=== PATIENT | female | born 2000 | race Caucasian/White ===

== ENCOUNTER 2018-10-07 14:56 | Emergency (ER) | payer MEDICAID, SELFPAY ==
[2018-10-07 14:58] VITALS: BP 105/60; PULSE 74; RESP 16; TEMP 36.9; O2SAT 98
--- NOTE | 2018-10-07 15:06 | W.ED.GENAD ---
Discharge Plan Disposition Patient Disposition: HOME Condition: Stable Discharge Details Chief Complaint: Sorethroat Clinical Impression: Sore throat Primary Care Provider: Marianne Jordan ED Provider: Jose Luis Ferreira Home Meds and New Rx's Prescriptions: No Action sertraline 25 MG tablet 25 mg PO DAILY RF: 0 sulfamethoxazole-trimethoprim [Bactrim DS] 1 EACH tablet 1 ea PO BID Qty: 14 RF: 0 etonogestrel [Nexplanon] 68 MG implant 1 ea Intradermal DIRECTED RF: 0 Discharge Instructions Additional Instructions: You can take 1000mg tylenol and 600mg ibuprofen every 6 hours for pain as needed If symptoms continue next week see your primary care provider if you have severe worsening pain, inability to swallow liquids or difficulty breathing return to the emergency department Medical Decision Making 17 yo female who denies chronic med problems comes in with 3 days of sore throat and felt there were white patches on her posterior pharynx today so came here for an eval. Denies fevers, cough. She is speaking in full sentences without dyspnea, stridor or drooling and is laughing intermittently on exam. 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 Suspect viral pharyngitis vs mild irritation from post nasal drip but will check for strep and if positive tx. Will d/c regardless with return precautions Differential Diagnosis viral pharyngitis, post nasal drip, strep HPI General Mode of arrival: ambulatory. Date/Time Provider Initiated Documentation: 10/07/18 14:58. Limitations to Documentation: no limitations. Information obtained by: patient. History of Present Illness 17 year old F presents to the emergency department with the chief complaint of sore throat, described as moderate, Quality is described as aching, Patient reports no radiation. Patient started experiencing this day(s) (3) and it has been constant. No exacerbating factors reported . Patient notes no other symptoms.. Related Data Home Medications Medication Instructions Recorded Confirmed etonogestrel [Nexplanon] 1 ea INTRADERMAL DIRECTED 05/26/16 11/07/17 sertraline 25 mg PO DAILY 10/09/17 11/07/17 sulfamethoxazole-trimethoprim 1 ea PO BID #14 tablet 11/07/17 [Bactrim Ds Tablet] Previous Rx's Medication Instructions Recorded sulfamethoxazole-trimethoprim 1 ea PO BID #14 tablet 11/07/17 [Bactrim Ds Tablet] Allergies Allergy/AdvReac Type Severity Reaction Status Date / Time hair dye Allergy Intermediate Swelling/Ed Uncoded 11/07/17 12:19 aniceto General Stated Complaint: Sorethroat CONRADO: 4 Review of Systems Review of Systems All systems reviewed & are unremarkable except as noted in HPI and below Constitutional Denies chills and Denies fever(s) ENT Denies change in voice Cardiovascular Denies chest pain and Denies dyspnea Respiratory Denies cough and Denies dyspnea Gastrointestinal Denies vomiting Integumentary/Breasts Denies rash PFSH Social History Smoking/Tobacco Use Status: Current every day Tobacco Type: cigarettes Smoking cigarettes per day: 2 Drug use: Never Substance use type: marijuana Do you feel safe in your relationship?: Yes Exam Const General: no acute distress Orientation: alert HENMT Head: normal to inspection Ears: external ears normal General nose exam: external nose normal Mouth: moist mucous membranes Eyes General: appearance normal, both eyes and all related structures Neck Neck: normal visual inspection Resp Effort & Inspection: normal respiratory effort and able to speak in complete sentences Cardio Rate: regular rate Skin General skin exam: no rashes or lesions noted Neuro General: alert and oriented x3 Extrem General: normal to inspection Psych Mental Status: mental status grossly normal Course Vital Signs Temperature 36.9 C 10/07/18 14:58 Pulse 74 10/07/18 14:58 Respiratory Rate 16 10/07/18 14:58 Blood Pressure 105/60 10/07/18 14:58 Pulse Oximetry 98 10/07/18 14:58 Temperature 36.9 C 10/07/18 14:58 Temperature Source Skin 10/07/18 14:58 Pulse 74 10/07/18 14:58 Respiratory Rate 16 10/07/18 14:58 Respiratory Effort Non-Labored 10/07/18 15:03 Blood Pressure 105/60 10/07/18 14:58 Blood Pressure Position Sitting 10/07/18 14:58 Pulse Oximetry 98 10/07/18 14:58 Oxygen Delivery Method Room Air 10/07/18 14:58 Oxygen Flow Rate 0 10/07/18 14:58 Pain Level 6 10/07/18 14:58
--- NOTE | 2018-10-07 15:10 | ED.GENADUL_ITS ---
Discharge Plan Disposition Patient Disposition: HOME Condition: Stable Discharge Details Chief Complaint: Sorethroat Clinical Impression: Sore throat Primary Care Provider: Marianne Jordan ED Provider: Jose Luis Ferreira Home Meds and New Rx's Prescriptions: No Action sertraline 25 MG tablet 25 mg PO DAILY RF: 0 sulfamethoxazole-trimethoprim [Bactrim DS] 1 EACH tablet 1 ea PO BID Qty: 14 RF: 0 etonogestrel [Nexplanon] 68 MG implant 1 ea Intradermal DIRECTED RF: 0 Discharge Instructions Additional Instructions: You can take 1000mg tylenol and 600mg ibuprofen every 6 hours for pain as needed If symptoms continue next week see your primary care provider if you have severe worsening pain, inability to swallow liquids or difficulty breathing return to the emergency department Medical Decision Making 17 yo female who denies chronic med problems comes in with 3 days of sore throat and felt there were white patches on her posterior pharynx today so came here for an eval. Denies fevers, cough. She is speaking in full sentences without dyspnea, stridor or drooling and is laughing intermittently on exam. 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 Suspect viral pharyngitis vs mild irritation from post nasal drip but will check for strep and if positive tx. Will d/c regardless with return precautions Differential Diagnosis viral pharyngitis, post nasal drip, strep HPI General Mode of arrival: ambulatory . Date/Time Provider Initiated Documentation: 10/07/18 14:58 . Limitations to Documentation: no limitations . Information obtained by: patient . History of Present Illness 17 year old F presents to the emergency department with the chief complaint of sore throat, described as moderate, Quality is described as aching, Patient reports no radiation. Patient started experiencing this day(s) (3) and it has been constant. No exacerbating factors reported . Patient notes no other symptoms.. Related Data Home Medications Medication Instructions Recorded Confirmed etonogestrel [Nexplanon] 1 ea INTRADERMAL DIRECTED 05/26/16 11/07/17 sertraline 25 mg PO DAILY 10/09/17 11/07/17 sulfamethoxazole-trimethoprim 1 ea PO BID #14 tablet 11/07/17 [Bactrim Ds Tablet] Previous Rx's Medication Instructions Recorded sulfamethoxazole-trimethoprim 1 ea PO BID #14 tablet 11/07/17 [Bactrim Ds Tablet] Allergies Allergy/AdvReac Type Severity Reaction Status Date / Time hair dye Allergy Intermediate Swelling/Ed Uncoded 11/07/17 12:19 aniceto General Stated Complaint: Sorethroat CONRADO: 4 Review of Systems Review of Systems All systems reviewed & are unremarkable except as noted in HPI and below Constitutional Denies chills and Denies fever(s) ENT Denies change in voice Cardiovascular Denies chest pain and Denies dyspnea Respiratory Denies cough and Denies dyspnea Gastrointestinal Denies vomiting Integumentary/Breasts Denies rash PFSH Social History Smoking/Tobacco Use Status: Current every day Tobacco Type: cigarettes Smoking cigarettes per day: 2 Drug use: Never Substance use type: marijuana Do you feel safe in your relationship?: Yes Exam Const General: no acute distress Orientation: alert HENMT Head: normal to inspection Ears: external ears normal General nose exam: external nose normal Mouth: moist mucous membranes Eyes General: appearance normal, both eyes and all related structures Neck Neck: normal visual inspection Resp Effort & Inspection: normal respiratory effort and able to speak in complete sentences Cardio Rate: regular rate Skin General skin exam: no rashes or lesions noted Neuro General: alert and oriented x3 Extrem General: normal to inspection Psych Mental Status: mental status grossly normal Course Vital Signs Temperature 36.9 C 10/07/18 14:58 Pulse 74 10/07/18 14:58 Respiratory Rate 16 10/07/18 14:58 Blood Pressure 105/60 10/07/18 14:58 Pulse Oximetry 98 10/07/18 14:58 Temperature 36.9 C 10/07/18 14:58 Temperature Source Skin 10/07/18 14:58 Pulse 74 10/07/18 14:58 Respiratory Rate 16 10/07/18 14:58 Respiratory Effort Non-Labored 10/07/18 15:03 Blood Pressure 105/60 10/07/18 14:58 Blood Pressure Position Sitting 10/07/18 14:58 Pulse Oximetry 98 10/07/18 14:58 Oxygen Delivery Method Room Air 10/07/18 14:58 Oxygen Flow Rate 0 10/07/18 14:58 Pain Level 6 10/07/18 14:58
[2018-10-07 15:33] VITALS: BP 105/60; PULSE 74; RESP 16; TEMP 36.9; O2SAT 98
== END 2018-10-07 15:39 | disposition home or self-care (01) ==
LOC: ER 15:17
PROVIDERS: Emergency Provider Emergency Medicine; PCP Nurse Practitioner
DX: J02.9 Acute pharyngitis, unspecified (principal); F17.210 Nicotine dependence, cigarettes, uncomplicated
CPT/HCPCS: 87880; 99282; 87081

== ENCOUNTER 2020-04-30 17:22 | Outpatient (REF) | payer OTHER, SELFPAY ==
--- NOTE | 2020-04-30 16:30 | PAPFT_PTH ---
PATIENT: Nadia Morrison LOC: NCN #:[id number] AGE/SX: / ROOM: RE04/30/[address]: Meg Garcia : 2000 BED: DIS: 04/30/2020 SPEC #: [id number] RECD: 04/30/20 17:42 STATUS: NAPOLEON REYaneli #: [id number] LEÓN: 04/30/20 16:[address]: Meg Garcia DEPT: [facility] RECD BY: Georgette Wu ENTERED: 04/30/20 17:43 SP TYPE: PAPFT OTHR DR: Marianne Jordan Tissues: 1 - CX/ENDOCX FOR PAP SMEARS Procedures: PAP THIN PREP/UVM Screening Comments: [id number]
== END 2020-04-30 17:42 ==
LOC: NCHCN 17:22
PROVIDERS: PCP Nurse Practitioner; Visit Provider Nurse Practitioner Family
DX: Z00.00 Encounter for general adult medical examination without abnormal findings (principal); N89.8 Other specified noninflammatory disorders of vagina; F41.9 Anxiety disorder, unspecified; Z12.4 Encounter for screening for malignant neoplasm of cervix
CPT/HCPCS: 88142; 87480; 87510; 87660

== ENCOUNTER 2020-06-16 13:29 | Emergency (ER) | payer OTHER, SELFPAY ==
[2020-06-16 13:34] VITALS: BP 118/69; PULSE 104; RESP 16; TEMP 36.6; O2SAT 98
[2020-06-16 13:55] LABS: Bilirubin Negative (Negative); Blood Large (Negative); Clarity Cloudy (Clear); Glucose Negative (Negative); Ketones Trace mg/dL (Negative); Leukocyte Esterase Trace (Negative); Nitrite Negative (Negative); Specific Gravity >= 1.030 (1.005-1.025); Urobilinogen 0.2 EU/dL (Up TO 0.2)
[2020-06-16 14:03] LABS: Bacteria Moderate HPF (Negative); C & S Indicated? Yes; Casts Negative LPF (Negative); Crystals Negative HPF (Negative); Epithelial Cells Few HPF (Negative); Mucus Moderate (Negative); RBC >50 HPF (0-2)
--- NOTE | 2020-06-16 14:29 | ED.GENADUL_ITS ---
Discharge Plan Disposition Patient Disposition: HOME Condition: Stable Discharge Details Clinical Impression: UTI (urinary tract infection) Primary Care Provider: Meg Garcia ED Provider: Usama Hernandez Home Meds and New Rx's Prescriptions: New nitrofurantoin monohyd/m-cryst [Macrobid] 100 mg capsule 100 mg PO BID 7 Days Qty: 14 RF: 0 Discharge Instructions Instructions: Urinary Tract Infection in Women (ED) Additional Instructions: Macrobid as directed. [id number] Azo for symptomatic control. Plenty of fluids. Please watch for new or worsening symptoms and return to the ER for any concerns. I do recommend reaching out your primary care provider tomorrow to discuss outpatient reevaluation. Discharge Data Discharge Date/Time-TO BE ENTERED AT DEPARTURE: 06/16/20 14:37 Medical Decision Making 19-year-old female presenting for concern of UTI. She appears well, nontoxic. Dysuria and frequency began over the past 12-24 hours. Will obtain urinalysis and test. Urinalysis reveals moderate bacteria, 10-20 white cells, greater than 50 red cells, trace leukoesterase, large blood. Urine negative. In the setting of her urinalysis, symptoms, I will initiate therapy for UTI with Macrobid, first dose given now. Patient comfortable this plan and has no a dditional questions or concerns. Medical Records Medical records reviewed: Yes I reviewed the patient's medical records. Lab Data Lab results reviewed: Yes I reviewed the patient's lab results. Lab results narrative: 06/16/20 13:50 Urine - Reflex from Ua Urine Culture - Final Staphylococcus Saprophyticus Laboratory Tests Range/Units 06/16/20 13:50 Urine Color (Yellow) Yellow Urine Clarity (Clear) Cloudy Urine pH (5-8) 7.0 Ur Specific [place] (1.005-1.025) >= 1.030 H Urine Protein (Negative) mg/dL >=300 H Urine Ketones (Negative) mg/dL Trace H Urine Blood (Negative) Large H Urine Nitrite (Negative) Negative Urine Bilirubin (Negative) Negative Urine Urobilinogen (Up TO 0.2) EU/dL 0.2 Ur Leukocyte Esterase (Negative) Trace H Urine RBC (0-2) HPF >50 H Urine WBC (0-5) HPF 10-20 H Ur Epithelial Cells (Negative) HPF Few Urine Crystals (Negative) HPF Negative Urine Bacteria (Negative) HPF Moderate Urine Casts (Negative) LPF Negative Urine Mucus (Negative) Moderate Ur Culture Indicated? Yes Urine Glucose (Negative) mg/dL Negative HPI General Mode of arrival: ambulatory . Date/Time Provider Initiated Documentation: 06/16/20 13:30 . Limitations to Documentation: no limitations . Information obtained by: patient . HPI Narrative: This is a 19-year-old female, denies significant past medical history, presented to the ER for urinary frequency and pressure. She reports she believes she has UTI and this is what this feels like in the past. Symptoms began over the past 12-24 hours. She denies fevers, abdominal pain, nausea, vomiting, back pain, hematuria, vaginal bleeding or discharge. She reports that her last menstrual cycle was a few weeks ago. She was seen by [facility] RO[facility] ATTENDANT within the last month and had a normal pelvic examination. She denies any STD risk. Patient reports history of herpes but no outbreak now. Related Data Home Medications Medication Instructions Recorded Confirmed nitrofurantoin monohyd/m-cryst 100 mg PO BID 7 Days #14 cap 06/16/20 [Macrobid] Previous Rx's Medication Instructions Recorded nitrofurantoin monohyd/m-cryst 100 mg PO BID 7 Days #14 cap 06/16/20 [Macrobid] Allergies Allergy/AdvReac Type Severity Reaction Status Date / Time hair dye Allergy Intermediate Swelling/Ed Uncoded 06/16/20 13:52 aniceto General Stated Complaint: Urinary CONRADO: 4 Review of Systems Constitutional Constitutional: Denies fever(s) Gastrointestinal Gastrointestinal: Denies abdominal pain, Denies nausea and Denies vomiting Genitourinary Genitourinary: Denies abnormal vaginal bleeding, Denies genital lesions, Reports dysuria, Denies urinary incontinence, Reports urinary urgency and Denies vaginal discharge Musculoskeletal Musculoskeletal: Denies back pain Integumentary/Breasts Skin/Breast: Denies lesions and Denies erythema [facility] Social History Smoking/Tobacco Use Status: Current every day Tobacco Type: cigarettes Smoking risk assessment performed?: Yes Drug use: Never Substance use type: marijuana Do you feel safe in your relationship?: Yes Exam Const General: cooperative, healthy appearing, comfortable and no acute distress Orientation: alert and awake [facility] Head: normal to inspection, normocephalic and atraumatic Eyes General: appearance normal, both eyes and all related structures Conjunctivae: conjunctivae normal Sclera: sclerae normal Neck Neck: normal visual inspection, trachea midline and supple Resp Effort & Inspection: normal respiratory effort and able to speak in complete sentences Auscultation: clear to auscultation bilaterally Cardio Rate: regular rate Rhythm: regular rhythm GI Inspection: normal to inspection Palpation: soft, not firm, no guarding, no pulsatile masses and nontender Auscultation: normal bowel sounds Back/Spine/Pelvis Back: no CVA tenderness and No back tenderness Skin General skin exam: no rashes or lesions noted Neuro General: patient alert, patient awake, moves all extremities and no focal motor deficits Sensory Exam: no sensory deficits noted Psych Appearance: grossly normal Mental Status: mental status grossly normal Course Vital Signs Vital signs: Vital Signs Temperature 36.6 C 06/16/20 13:34 Pulse 104 H 06/16/20 13:34 Respiratory Rate 16 06/16/20 13:34 Blood Pressure 118/69 06/16/20 13:34 Pulse Oximetry 98 06/16/20 13:34 Temperature 36.6 C 06/16/20 13:34 Temperature Source Temporal Artery Scan 06/16/20 13:34 Pulse 104 H 06/16/20 13:34 Respiratory Rate 16 06/16/20 13:34 Respiratory Effort 06/16/20 13:53 Blood Pressure 118/69 06/16/20 13:34 Blood Pressure Position Sitting 06/16/20 13:34 Pulse Oximetry 98 06/16/20 13:34 Oxygen Delivery Method Room Air 06/16/20 13:34 Oxygen Flow Rate 0 06/16/20 13:34 Lab/Test Results Lab/Test Results: 06/16/20 13:50 Urine - Reflex from Ua Urine Culture - Pending Laboratory Tests Range/Units 06/16/20 13:50 Urine Color (Yellow) Yellow Urine Clarity (Clear) Cloudy Urine pH (5-8) 7.0 Ur Specific [place] (1.005-1.025) >= 1.030 H Urine Protein (Negative) mg/dL >=300 H Urine Ketones (Negative) mg/dL Trace H Urine Blood (Negative) Large H Urine Nitrite (Negative) Negative Urine Bilirubin (Negative) Negative Urine Urobilinogen (Up TO 0.2) EU/dL 0.2 Ur Leukocyte Esterase (Negative) Trace H Urine RBC (0-2) HPF >50 H Urine WBC (0-5) HPF 10-20 H Ur Epithelial Cells (Negative) HPF Few Urine Crystals (Negative) HPF Negative Urine Bacteria (Negative) HPF Moderate Urine Casts (Negative) LPF Negative Urine Mucus (Negative) Moderate Ur Culture Indicated? Yes Urine Glucose (Negative) mg/dL Negative POC- Test(urine) Negative
[2020-06-16] MEDS: MacroBID 100 MG CAP PO (14:30)
== END 2020-06-16 14:37 | disposition home or self-care (01) ==
PROVIDERS: Emergency Provider Physician Assistant; PCP Nurse Practitioner Family
DX: N39.0 Urinary tract infection, site not specified (principal); B95.7 Other staphylococcus as the cause of diseases classified elsewhere; Z87.440 Personal history of urinary (tract) infections
CPT/HCPCS: 81025; 87077; 99283; 81003; 81015; 87086; 87186

== ENCOUNTER 2020-08-07 10:27 | Outpatient (CLI) | payer OTHER, SELFPAY ==
[2020-08-07 11:24] LABS: HCG Quant, Pregnancy 28292 mIU/mL (1-3)
== END 2020-08-07 10:28 | disposition home or self-care (01) ==
PROVIDERS: PCP Nurse Practitioner Family; Visit Provider Advanced Practice Midwife
DX: Z32.01 Encounter for pregnancy test, result positive (principal)
CPT/HCPCS: 36415; 84702

== ENCOUNTER 2020-09-10 18:22 | Outpatient (REF) | payer OTHER, SELFPAY ==
[2020-09-10 18:37] LABS: *AMPHETAMINES SCREEN URINE Negative (Negative); *BARBITURATES SCREEN URINE Negative (Negative); *BENZODIAZEPINES SCREEN URINE Negative (Negative); Cannabinoids THC Positive (Negative); Cocaine Screen,Urine Negative (Negative); METHADONE URINE SCREEN Negative (Negative); OPIATES URINE SCREEN Negative (Negative)
[2020-09-10 18:41] LABS: Tricyclic Antidepressants Negative (Negative)
[2020-09-18 16:26] LABS: Buprenorphine Negative ng/mL (Cutoff: 5.0); Norbuprenorphine Negative ng/mL (Cutoff: 2.5)
== END 2020-09-10 18:23 | disposition home or self-care (01) ==
LOC: LBN 18:22
PROVIDERS: PCP Nurse Practitioner Family; Visit Provider Advanced Practice Midwife
DX: O02.1 Missed abortion (principal); Z01.818 Encounter for other preprocedural examination
CPT/HCPCS: 80307

== ENCOUNTER 2020-09-11 08:27 | Day surgery (SDC) | payer OTHER, SELFPAY ==
[2020-09-11 08:56] VITALS: BP 115/71; PULSE 79; RESP 16; TEMP 37; O2SAT 100
--- NOTE | 2020-09-11 09:18 | W.ANESPRE ---
General Info Date of Service Date Performed: 09/11/20 Height: 5 ft 6 in Weight: 57 kg Body Mass Index (BMI): 20.2 Surgical Procedure: Operation Date: 09/11/20 09:25 Proposed Procedures Side Surgeon p Suction Completion Darling Montez MD Meds Allergies and Home Medications Allergies Allergy/AdvReac Type Severity Reaction Status Date / Time hair dye Allergy Intermediate Swelling/Ed Uncoded 09/11/20 08:54 aniceto Home Medication Medication Instructions Recorded ondansetron 4 mg disintegrating 4 mg PO Q8H PRN 30 Days #90 tab 08/07/20 tablet PFSH Active Problems Active Problems: Problem Status Onset Code Hx of dilation and curettage Z98.890 Encounter for screening for other viral diseases Z11.59 UTI (urinary tract infection) N39.0 Missed menses ~06/2020 N92.6 confirmed by positive urine test Z32.01 Nausea and vomiting during prior to 22 weeks gestation O21.9 History of marijuana use Z87.898 History of prior cigarette smoking Z87.891 demise before 20 weeks with retention of fetus O02.1 Medical History Medical History (Updated 09/11/20 @ 08:58 by Darling Montez MD) No pertinent past medical history Surgical History Surgical History (Updated 09/11/20 @ 08:58 by Darling Montez MD) Hx of dilation and curettage Hx of wisdom tooth extraction Tobacco Smoking/Tobacco Use Status: Former Tobacco Use Tobacco: How many years used: 3 Alcohol Alcohol Intake: never Substance Use Substance use: Occasionally Substance use type: marijuana Details: 09/11/20 pt reports none today Prental History History 1 Para 0 Hx # Term Pregnancies 0 Multiple births 0 Hx # Pregnancies 0 Ectopic pregnancies 0 AB induced 0 Hx Number of Living Children 0 AB spontaneous 0 Vital Signs and Lab Results Vital Signs Most Recent Vital Signs in EMR: Most Recent Vital Signs Temp Pulse Resp BP Pulse Ox 37 C 79 16 115/71 100 09/11/20 08:56 09/11/20 08:56 09/11/20 08:56 09/11/20 08:56 09/11/20 08:56 Lab Results Result Diagrams: 09/11/20 09:15 09/11/20 09:15 Blood Type / Crossmatch: Patient ABO/Rh Pending 09/11/20 09:15 09/11/20 Complete Blood Count: White Blood Count 7.81 10^3/uL (4.4-10.8) 09/11/20 09:15 09/11/20 Red Blood Count 4.03 10^6/uL (3.93-5.22) 09/11/20 09:15 09/11/20 Hemoglobin 12.0 g/dL (11.2-15.7) 09/11/20 09:15 09/11/20 Hematocrit 36.0 % (36.0-46.0) 09/11/20 09:15 09/11/20 Platelet Count 279 10^3/uL (130-400) 09/11/20 09:15 09/11/20 Complete Metabolic Panel: Sodium Level 140 mmol/L (136-145) 09/11/20 09:15 09/11/20 Potassium Level 3.8 mmol/L (3.5-5.1) 09/11/20 09:15 09/11/20 Chloride Level 104 mmol/L (98-107) 09/11/20 09:15 09/11/20 Carbon Dioxide Level 26.1 mmol/L (21.0-32.0) 09/11/20 09:15 09/11/20 Liver Function Panel: No Data to Display Coagulation Panel: No Data to Display Cardiac Panel: No Data to Display Arterial Blood Gas: No Data to Display Venous Blood Gas: No Data to Display Pancreas Panel: No Data to Display Thyroid Panel: No Data to Display Infectious Disease: No Data to Display Blood Cultures: No Data to Display Toxicology Panel: Urine Amphetamines Screen Negative (Negative) 09/10/20 13:30 09/10/20 Urine Benzodiazepines Screen Negative (Negative) 09/10/20 13:30 09/10/20 Urine Barbiturates Screen Negative (Negative) 09/10/20 13:30 09/10/20 Urine Cocaine Screen Negative (Negative) 09/10/20 13:30 09/10/20 Urine Methadone Screen Negative (Negative) 09/10/20 13:30 09/10/20 Urine Opiates Screen Negative (Negative) 09/10/20 13:30 09/10/20 Ur Tricyclic Antidepressants Screen Negative (Negative) 09/10/20 13:30 09/10/20 Ur Tetrahydrocannabinol (THC) Scrn Positive (Negative) A 09/10/20 13:30 09/10/20 Panel: No Data to Display Anesthesia Assessment and Plan Anesthesia History Personal History: No History of Anesthesia Complications Family History: No Family History of Anesthesia Complications Exercise Tolerance Exercise Tolerance: Metabolic Equivalents>4 Pertinent Negatives Pertinent Negatives: No Symptoms of GERD, No Major Cardiovascular Symptoms or Complaints and No Major Pulmonary Symptoms or Complaints Cardiac & Pulmonary Exam Cardiac Exam: Normal S1/S2 Heart Sounds Pulmonary Exam: Clear Bilateral Breath Sounds Airway Exam Known Difficult Airway: No Mallampati Class: 1 Mouth Opening: Normal (> 3cm) Thyromental Distance: Greater than 3 cm Neck Range of Motion: Full ROM Neck Circumference: Normal Teeth Condition: Normal Dentition ASA Classification ASA Score: ASA 2 Emergency Case?: No NPO Status NPO Status: NPO Clears >2 hours, Solids >8 hours Status Status: Not Relevant due to Medical History Anesthesia Plan Resuscitation Status: Full Code Anesthesia Technique: General Anesthesia Airway Planned: Natural Airway Monitors Used: Standard Monitors
[2020-09-11 09:23] LABS: MCH 29.8 pg (27.0-33.0); MCHC 33.3 % (32.0-36.0); MCV 89.3 fL (80-95); MPV 9.9 fL (8.0-11.0); Platelet Count 279 10^3/uL (130-400); RBC 4.03 10^6/uL (3.93-5.22); RDW 12.5 % (11.7-14.6); RDW-SD 40.9 fL; WBC 7.81 10^3/uL (4.4-10.8)
[2020-09-11 09:27] LABS: Anion Gap 9.9 mmol/L (3-11); CO2 26.1 mmol/L (21.0-32.0); Chloride 104 mmol/L (98-107); Potassium 3.8 mmol/L (3.5-5.1); Sodium 140 mmol/L (136-145)
[2020-09-11] MEDS: Lactated Ringers 1,000 ML 125 ML IV (09:30)
[2020-09-11 09:36] VITALS: BMI 20.2
[2020-09-11] MEDS: DOXYCYCLINE 100 MG in Normal Saline 100 ML IVPB (09:59)
[2020-09-11] MEDS: Bupivacaine 0.25% Pres-Free 30 ML VIAL (10:07)
--- NOTE | 2020-09-11 10:17 | POCSPONT_PTH ---
PATIENT: Nadia Morrison LOC: [facility] U#:[id number] AGE/SX: 19/F ROOM: RE09/11/[address]: Darling Montez : 2000 BED: DIS: 09/11/2020 SPEC #: [id number] RECD: 09/11/20 12:41 STATUS: NAPOLEON MCLAUGHLIN #: [id number] LEÓN: 09/11/20 10:[address]: Darling Montez DEPT: Surgical Specimen RECD BY: Georgette Wu ENTERED: 09/11/20 12:42 SP TYPE: POCJOHANNE ANDRADE DR: Meg Garcia Tissues: 1 - ,SPONTANEOUS Procedures: GROSS AND MICRO LEVEL 4 IMMUNOPEROXIDASE STAIN Comments: [id number]
[2020-09-11 10:38] VITALS: BP 100/62; PULSE 74; RESP 16; TEMP 36.1; O2SAT 98
[2020-09-11 11:04] VITALS: BP 102/64; PULSE 61; RESP 16; TEMP 36.5; O2SAT 100
--- NOTE | 2020-09-11 11:10 | W.ANESPOSTOP ---
Postoperative Evaluation Date, Time and Location Date Performed: 09/11/20 Time Performed: 11:10 Patient Location: Day Surgery Unit Vital Signs Most Recent Imported Vital Signs: Most Recent Vital Signs Temp Pulse Resp BP Pulse Ox 36.5 C 61 16 102/64 100 09/11/20 11:04 09/11/20 11:04 09/11/20 11:04 09/11/20 11:04 09/11/20 11:04 Pain Score Most Recent Pain Score: Most Recent Pain Score Pain Level 0 09/11/20 11:04 Assessment Mental Status: Awake (Alert & Oriented to Patient Baseline) Airway and Respiratory Function: Patent airway with normal (patient baseline) respiratory exam Cardiovascular Function: Hemodynamically Stable Hydration Status: Adequately Hydrated Nausea & Vomiting: No Nausea or Vomiting Pain: Pt. Denies Any Pain Peripheral Nerve Block: Patient did not receive a nerve block
--- NOTE | 2020-09-11 11:14 | W.PM.DSUDISC ---
Discharge Plan Disposition Patient Disposition: HOME Condition: Good Discharge Details Reason For Visit: embryonic demise. D&C Attending Provider: Darling Montez Primary Care Provider: Meg Garcia Home Meds and New Rx's Prescriptions: No Action ondansetron 4 mg tablet,disintegrating 4 mg PO Q8H PRN (Reason: nausea and vomiting) 30 Days Qty: 90 RF: 2 Discharge Instructions Additional Instructions: follow up with Dr. Montez in [facility] any time after 09/22/20. Nothing in the vagina, no tampons, no sex until your visit with Dr. Montez You can expect light vaginal bleeding, like a period for the next week. Stand Alone Forms: DSU Post Suction D+C Activity:: Activity as Tolerated Diet:: As Tolerated Discharge Orders Discharge Orders: Discharge Order (Routine); Ordered 09/11/20 Ordered By: Darling Montez
--- NOTE | 2020-09-11 11:20 | ROE_ITS ---
Date of service: 09/11/20 Time of Service: 11:20 Operative Note Operative Note DATE OF PROCEDURE: 09/11/20 PRE-OP DIAGNOSIS: embryonic demise at 10w5d EGA POST-OP DIAGNOSIS: same PROCEDURE: cervical dilation and suction evacuation of uterine contents SURGEON: Darling Montez ANESTHESIA TYPE: General:No Airway Refer to Anesthesia Record ESTIMATED BLOOD LOSS: 50 PATHOLOGY: other (products of conception to pathology) COMPLICATIONS: None Patient was transported to: same day Patient's condition: stable Indications: 19yo female who was diagnosed with embryonic demise on 09/10/20 @ approximately 10w5d EGA. During initial OB H&P CNM was unable to auscultate heart tones using handheld doppler. TV u/s performed in the office showed non-viable IUP with CRL 1.73 cm c/w 8w0d EGA. Pt was counseled and accepted D&C. Findings: Uterus 8-9W in size. Mod amount of products of conception recovered. Procedure Description: Patient was taken to the operating room where she was placed in the dorsal supine position and general anesthesia was administered without difficulty. IV Doxycycline was administered upon arrival in the OR. She was then placed in the dorsal lithotomy position in [facility] stirrups in a neurologically neutral position. She was then prepped, and draped in the usual sterile fashion. Surgical timeout was performed. Tionesta speculum was placed into the vagina and the anterior lip of the cervix was infiltrated with 2 cc of 0.25% Marcaine without epinephrine. A single-tooth tenaculum was then used to grasp and hold the anterior lip of the cervix. A paracervical block was performed with 4 cc of quarter percent Marcaine injected into the 4 and 8:00 paracervical spaces respectively. The uterus was sounded to 10 cm. The cervix was then sequentially dilated to a maximum of 16 Braga and a 7 mm curved suction cannula was attached to suction and the level of suction tested prior to inserting the cannula into the uterine cavity attaching it to suction and sequentially suction curetting all 4 quadrants of the uterine cavity until a gritty texture was obtained. The suction cannula was then removed a banjo curette was used to perform a gentle curetting of all 4 quadrants of the uterine cavity. Minimal tissue was returned. A final insertion of the suction cannula and suction curetting of all 4 quadrants was performed with minimal tissue returned. All instruments were removed from the vagina tenaculum site was noted to be hemostatic. Patient was awakened and transported to recovery area in stable condition all sponge lap needle counts correct x2
== END 2020-09-11 11:58 | disposition home or self-care (01) ==
PROVIDERS: Advanced Practice Midwife; PCP Nurse Practitioner Family; Visit Provider Obstetrics & Gynecology Gynecology
PROC: (CPT 59841; principal; 2020-09-11 09:15)
DX: O02.1 Missed abortion (principal)
CPT/HCPCS: 59820; 36415; 80051; 85027; 86850; 86900; 86901; 88305; 88361; J1885; J2001; J2250; J2405; J3010

== ENCOUNTER 2021-03-20 09:52 | Outpatient (CLI) | payer OTHER, SELFPAY ==
--- NOTE | 2021-03-20 10:35 | DI.RAD_ITS ---
Exam(s) XR KNEE LT 3V AP,LAT,DANN EXAM: XR KNEE LT 3V AP,LAT,DANN CLINICAL HISTORY: ACUTE LT KNEE PAIN, M25.562. TECHNIQUE: 2D digital imaging was performed. COMPARISON: No exams were available for comparison FINDINGS: No evidence of fracture but there does appear to be a joint effusion. This may signify an internal d erangement. Bone density is normal. No degenerative changes. No osteochondral defects evident. No patellar dis placement IMPRESSION: No fractures but there is a joint effusion. This most probably signifies internal derangement. Foll ow-up MRI recommended. DATA REPOSITORY: RADIATION DOSE DELIVERED:
== END 2021-03-20 10:12 ==
PROVIDERS: PCP Nurse Practitioner Family; Visit Provider Nurse Practitioner Family
DX: M25.562 Pain in left knee (principal); M25.462 Effusion, left knee
CPT/HCPCS: 73562

== ENCOUNTER 2021-04-01 00:58 | Outpatient (CLI) | payer OTHER, SELFPAY ==
--- NOTE | 2021-04-01 | DI.MRI_ITS ---
Exam(s) MR LOWER JOINT LT WO EXAM: MR LOWER JOINT LT WO CLINICAL HISTORY: ACUTE LT KNEE PAIN, M25.562. TECHNIQUE: Multiplanar multisequence MRI was performed. COMPARISON: CR XR KNEE LT 3V AP,LAT,DANN from 03/20/2021 CR XR KNEE LT 3V AP,LAT,DANN from 03/20/2021 FINDINGS: BONES: There is no fracture or contusion pattern. JOINTS: Articular cartilage is unremarkable. There is a small joint effusion. TENDONS: Extensor mechanism: Unremarkable. Medial retinaculum: Unremarkable. Lateral retinaculum: Unremarkable. Popliteus: Unremarkable. MUSCLES: Unremarkable. MENISCI: The medial meniscus is unremarkable. The lateral meniscus is unremarkable. SOFT TISSUES: There is mild edema seen in the soft tissues anterior to the knee. No focal fluid [place] ection is seen. LIGAMENTS: Anterior Cruciate: There is mild hyperintense signal seen within the anterior cruciate ligament. Par tial tear or sprain cannot be excluded. Posterior Cruciate: There is a large tear of the posterior cruciate ligament. There do appear to be some intact fibers suggesting a large partial tear. Medial Collateral:Unremarkable. Lateral Collateral: Unremarkable. OTHER: IMPRESSION: 1. There is a large tear of the posterior cruciate ligament. There do appear to be a few intact fibe rs. 2. Hyperintense signal seen within the anterior cruciate ligament which may represent a partial tear or sprain. 3. Small joint effusion and subcutaneous edema anteriorly. DATA REPOSITORY:
== END 2021-04-01 01:18 ==
PROVIDERS: PCP Nurse Practitioner Family; Visit Provider Nurse Practitioner Family
DX: M25.562 Pain in left knee (principal); M25.462 Effusion, left knee; S83.522A Sprain of posterior cruciate ligament of left knee, initial encounter; X58.XXXA Exposure to other specified factors, initial encounter
CPT/HCPCS: 73721

== ENCOUNTER 2021-06-24 01:36 | Outpatient (CLI) | payer OTHER, SELFPAY ==
[2021-06-24 14:51] LABS: Kit/Specimen SENT
[2021-06-24 15:02] LABS: Abs Immature Grans 0.06 10^3/uL (0.0-0.06); Absolute Basophil Count 0.04 10^3/uL (0.0-0.2); Absolute Eosinophil Count 0.23 10^3/uL (0.0-0.7); Absolute Lymphocyte Count 2.76 10^3/uL (1.2-3.4); Absolute Neutrophil Count 8.82 10^3/uL (1.2-6.7); Basophils % 0.3; Eosinophils % 1.8; HCT 37.6 % (36.0-46.0); HGB 12.1 g/dL (11.2-15.7); Immature Grans % 0.5; Lymphocytes % 22.1; MCH 27.9 pg (27.0-33.0); MCHC 32.2 % (32.0-36.0); MCV 86.6 fL (80-95); MPV 10.2 fL (8.0-11.0); Monocytes % 4.8; Neutrophils % 70.5; Nucleated RBC 0 %; Platelet Count 351 10^3/uL (130-400); RBC 4.34 10^6/uL (3.93-5.22); RDW 12.6 % (11.7-14.6); WBC 12.51 10^3/uL (4.4-10.8)
[2021-06-24 15:05] LABS: Glucose,1 Hr (Glucola) 73 mg/dL (80-140)
[2021-06-24 17:33] LABS: TSH (W/Ref FT4) 1.12 uIU/mL (0.36-3.74)
[2021-06-25 10:35] LABS: Hepatitis B Surface Ag Negative (Negative)
[2021-06-25 11:07] LABS: Hepatitis C Ab w Rflx HCV PCR Negative (Negative)
[2021-06-25 11:10] LABS: HIV-1/2 Ag & Ab Screen Negative (Negative)
[2021-06-25 11:27] LABS: Rubella IgG Ab (UVM) Positive (See Note); Varicella IgG Antibody Positive (See Note)
[2021-06-26 19:04] LABS: Syphilis IgG w/Reflex Nonreactive (Nonreactive)
[2021-06-29 01:19] LABS: Specimen WB Whole Blood
[2021-07-02 01:51] LABS: Result Summary NEGATIVE; Specimen WB Whole Blood
== END 2021-06-24 01:37 | disposition home or self-care (01) ==
LOC: LBO 01:36
PROVIDERS: PCP Nurse Practitioner Family; Visit Provider Advanced Practice Midwife
DX: Z34.81 Encounter for supervision of other normal pregnancy, first trimester
CPT/HCPCS: 36415; 81329; 82950; 86787; 86803; 86850; 86900; 86901; 87340; 87389; 81220; 84443; 85025; 86762; 86780

== ENCOUNTER 2021-06-24 20:18 | Outpatient (REF) | payer OTHER, SELFPAY ==
[2021-06-24 17:24] LABS: *AMPHETAMINES SCREEN URINE Negative (Negative); *BARBITURATES SCREEN URINE Negative (Negative); *BENZODIAZEPINES SCREEN URINE Negative (Negative); Cannabinoids THC Negative (Negative); Cocaine Screen,Urine Negative (Negative); METHADONE URINE SCREEN Negative (Negative); OPIATES URINE SCREEN Negative (Negative)
[2021-06-24 17:26] LABS: Tricyclic Antidepressants Negative (Negative)
== END 2021-06-24 20:19 | disposition home or self-care (01) ==
LOC: NCHCN 20:18
PROVIDERS: PCP Nurse Practitioner Family; Visit Provider Advanced Practice Midwife
DX: Z34.91 Encounter for supervision of normal pregnancy, unspecified, first trimester (principal); N89.8 Other specified noninflammatory disorders of vagina; Z3A.12 12 weeks gestation of pregnancy
CPT/HCPCS: 80307; 87086; 87480; 87510; 87660

== ENCOUNTER 2021-07-22 15:48 | Outpatient (REF) | payer OTHER, SELFPAY ==
[2021-07-24 13:53] LABS: Chlamydia Result Negative (Negative); GC Result Negative (Negative)
== END 2021-07-22 15:49 | disposition home or self-care (01) ==
LOC: LBN 15:48
PROVIDERS: PCP Nurse Practitioner Family; Visit Provider Advanced Practice Midwife
DX: Z34.92 Encounter for supervision of normal pregnancy, unspecified, second trimester (principal); Z3A.16 16 weeks gestation of pregnancy
CPT/HCPCS: 87491; 87591

== ENCOUNTER 2021-07-23 03:00 | Outpatient (CLI) | payer OTHER, SELFPAY ==
[2021-07-25 13:55] LABS: AFP 28.1 ng/mL; Cigarette smoking status non-Smoker; GA used in risk estimate Scan estimate; IVF Pregnancy No; Initial or repeat testing Initial testing; Insulin dependent diabetes No; Maternal Weight 188 lbs; Number of Fetuses 1; Prev Pregnancy w/NTD No; RECOMMENDED FOLLOW UP None.; Results Summary Normal risk
== END 2021-07-23 03:01 | disposition home or self-care (01) ==
LOC: LBO 03:00
PROVIDERS: PCP Nurse Practitioner Family; Visit Provider Advanced Practice Midwife
DX: Z34.92 Encounter for supervision of normal pregnancy, unspecified, second trimester (principal); Z36.89 Encounter for other specified antenatal screening; Z3A.16 16 weeks gestation of pregnancy
CPT/HCPCS: 36415; 82105

== ENCOUNTER 2021-07-29 17:48 | Outpatient (REF) | payer OTHER, SELFPAY | END 2021-07-29 17:49 | disposition home or self-care (01) | LOC: LBN 17:48 | PROVIDERS: PCP Nurse Practitioner Family; Visit Provider Advanced Practice Midwife | DX: R30.0 Dysuria (principal) | CPT/HCPCS: 87077; 87086; 87186 ==

== ENCOUNTER 2021-10-14 03:32 | Outpatient (CLI) | payer OTHER, SELFPAY | END 2021-10-14 03:33 | disposition home or self-care (01) | LOC: LBO 03:32 | PROVIDERS: PCP Nurse Practitioner Family; Visit Provider Advanced Practice Midwife ==

== ENCOUNTER 2021-10-16 04:18 | Outpatient (CLI) | payer OTHER, SELFPAY ==
[2021-10-16 16:10] LABS: HCT 31.5 % (36.0-46.0); HGB 10.3 g/dL (11.2-15.7); MCHC 32.7 % (32.0-36.0); MCV 83 fL (80-95); MPV 9.9 fL (8.0-11.0); Platelet Count 350 10^3/uL (130-400); RBC 3.82 10^6/uL (3.93-5.22); RDW 13.3 % (11.7-14.6); RDW-SD 40.2 fL; WBC 15.17 10^3/uL (4.4-10.8)
[2021-10-16 16:11] LABS: Glucose,1 Hr (Glucola) 143 mg/dL (80-140)
== END 2021-10-16 04:19 | disposition home or self-care (01) ==
LOC: LBO 04:18
PROVIDERS: Advanced Practice Midwife; PCP Nurse Practitioner Family; Visit Provider Advanced Practice Midwife
DX: Z34.93 Encounter for supervision of normal pregnancy, unspecified, third trimester (principal); Z3A.28 28 weeks gestation of pregnancy
CPT/HCPCS: 36415; 82950; 85027

== ENCOUNTER 2021-10-31 02:34 | Outpatient (CLI) | payer OTHER, SELFPAY ==
[2021-10-31 09:17] LABS: Glucose 1 Hour 179 mg/dL
[2021-10-31 11:28] LABS: Glucose 3 Hour 119 mg/dL
== END 2021-10-31 02:35 | disposition home or self-care (01) ==
LOC: LBO 02:34
PROVIDERS: PCP Nurse Practitioner Family; Visit Provider Advanced Practice Midwife
DX: O26.893 Other specified pregnancy related conditions, third trimester (principal); R73.09 Other abnormal glucose; Z3A.30 30 weeks gestation of pregnancy
CPT/HCPCS: 36415; 82951

== ENCOUNTER 2021-11-05 03:44 | Outpatient (CLI) | payer OTHER, SELFPAY | END 2021-11-05 03:45 | disposition home or self-care (01) | LOC: LBO 03:45 | PROVIDERS: PCP Nurse Practitioner Family; Visit Provider Advanced Practice Midwife ==

== ENCOUNTER 2021-12-11 16:20 | Outpatient (REF) | payer OTHER, SELFPAY ==
[2021-12-11 14:16] LABS: *AMPHETAMINES SCREEN URINE Negative (Negative); *BARBITURATES SCREEN URINE Negative (Negative); *BENZODIAZEPINES SCREEN URINE Negative (Negative); Cannabinoids THC Negative (Negative); Cocaine Screen,Urine Negative (Negative); METHADONE URINE SCREEN Negative (Negative); OPIATES URINE SCREEN Negative (Negative)
[2021-12-11 14:18] LABS: Tricyclic Antidepressants Negative (Negative)
[2021-12-15 13:36] LABS: Buprenorphine Negative ng/mL (Cutoff: 5.0)
== END 2021-12-11 16:21 | disposition home or self-care (01) ==
LOC: LBN 16:20
PROVIDERS: PCP Nurse Practitioner Family; Visit Provider Advanced Practice Midwife
DX: Z34.93 Encounter for supervision of normal pregnancy, unspecified, third trimester (principal)
CPT/HCPCS: 80307; 87081

== ENCOUNTER → 2021-12-12 00:41 | Outpatient (CLI) | payer OTHER, SELFPAY ==
--- NOTE | 2021-12-12 08:30 | DI.US_ITS ---
Exam(s) US OB BETHANY WEIGHT EXAM: US OB BETHANY WEIGHT CLINICAL HISTORY: growth, ELEVATED GLUCOSE, UTERINE SIZE DISCREP, R73.09, O26.843 TECHNIQUE: Ultrasound performed using standard protocol. COMPARISON: No exams were available for comparison FINDINGS: Ob ultrasound was performed utilizing 3rd trimester protocol. biometry is consistent with gest ational age of 38 weeks and EDC of 12/26/2021. Estimated weight is 3458 grams which is at the 90th percentile for predicted gestational age. The BETHANY is 8 and there is visually mildly decreased quantity of amniotic fluid. Fetus is in cephalic presentation. Placenta is anterior. IMPRESSION: DATA REPOSITORY:
== END ==
PROVIDERS: PCP Nurse Practitioner Family; Visit Provider Advanced Practice Midwife
DX: O26.843 Uterine size-date discrepancy, third trimester (principal); Z3A.38 38 weeks gestation of pregnancy; O41.93X0 Disorder of amniotic fluid and membranes, unspecified, third trimester, not applicable or unspecified
CPT/HCPCS: 76816

== ENCOUNTER 2021-12-14 15:44 | Outpatient (CLI) | payer OTHER, SELFPAY ==
[2021-12-14 15:53] VITALS: BP 135/69; PULSE 130
[2021-12-14 16:29] VITALS: BP 130/66; PULSE 115
[2021-12-14 16:33] VITALS: BP 130/66; PULSE 115; TEMP 36.6
[2021-12-14 17:11] LABS: Bilirubin Negative (Negative); Blood Negative (Negative); Clarity Sl Cloudy (Clear); Glucose Negative (Negative); Ketones Negative (Negative); Leukocyte Esterase Moderate (Negative); Nitrite Negative (Negative); Urobilinogen 0.2 EU/dL (Up TO 0.2)
[2021-12-14 17:19] LABS: Bacteria Packed HPF (Negative); C & S Indicated? No/Sq. Contamination; Crystals Negative HPF (Negative); Epithelial Cells Many HPF (Negative); Mucus Negative (Negative); RBC 0-2 HPF (0-2); WBC 20-50 HPF (0-5)
--- NOTE | 2021-12-16 08:30 | W.OBNST ---
Date of service: 12/14/21 Time of Service: 17:00 NST Evaluation Reason for NST Reasons for Nonstress Test: DECREASED MOVEMENT Gestational Age Gestational Age in Weeks and Days: 36 Weeks and 6Days Test and Monitor Explained Test/Monitor Explained: Test Explained, Monitor Explained and Patient Verbalized Understanding Vital Signs Blood Pressure: 130/66 Pulse: 115 Temperature: 97.9 F Urine Results Urine Protein: Negative Urine Ketones: Negative Urine Glucose: Negative Urine Blood: Negative NST Information Date on Monitor: 12/14/21 Time on Monitor: 15:51 Date off Monitor: 12/14/21 Time off Monitor: 16:30 Total Time on Monitor: 39 NST Interventions: Notify Provider Contraction Frequency: 0 NST Evaluation Patient States Movement: Present FHR Baseline: 155 Variability: Moderate 6-25 bpm Accelerations: 15x15 Decelerations: None NST Results: Reactive Note NST Note Note: Nadia reported decreased movement. Baby is active during NST. NST Reviewed and Verified by: Teresa Lyles
[2021-12-16 08:33] VITALS: BP 130/66; PULSE 115; TEMP 36.6
== END 2021-12-14 16:43 | disposition home or self-care (01) ==
LOC: LBN 15:45 → BCD 15:47 → OBS 15:53
PROVIDERS: PCP Nurse Practitioner Family; Visit Provider Advanced Practice Midwife
DX: O36.8131 Decreased fetal movements, third trimester, fetus 1 (principal); Z3A.36 36 weeks gestation of pregnancy
CPT/HCPCS: 59025; 81003; 81015

== ENCOUNTER 2022-01-05 07:38 | Outpatient (CLI) | payer OTHER, SELFPAY ==
[2022-01-05 08:10] VITALS: BP 128/77; PULSE 108; TEMP 36.7
[2022-01-05 08:12] VITALS: BP 128/77; PULSE 108
[2022-01-05 08:30] VITALS: BP 128/77; PULSE 108; RESP 17; O2SAT 99
[2022-01-05 08:37] VITALS: BP 128/77; PULSE 108; RESP 17; O2SAT 99
[2022-01-05] MEDS: diphenhydrAMINE 25 MG CAP 50 MG PO (09:59)
--- NOTE | 2022-01-05 12:24 | W.OBNST ---
Date of service: 01/05/22 Time of Service: 12:24 NST Evaluation Reason for NST Reasons for Nonstress Test: OTHER, SEE COMMENT Reason for NST Other: rule out labor Gestational Age Gestational Age in Weeks and Days: 40 Weeks and 0Days Test and Monitor Explained Test/Monitor Explained: Test Explained, Monitor Explained and Patient Verbalized Understanding Vital Signs Blood Pressure: 128/77 Pulse: 108 Temperature: 98.1 F Urine Results Urine Protein: Positive Urine Ketones: Positive Urine Glucose: Negative Urine Blood: Positive NST Information Date on Monitor: 01/05/22 Time on Monitor: 08:08 Date off Monitor: 01/05/22 Time off Monitor: 09:34 Total Time on Monitor: 86 NST Interventions: PO Hydration, Meal Given and Reposition Patient Contraction Frequency: 1-8 NST Evaluation Patient States Movement: Present FHR Baseline: 135 Variability: Moderate 6-25 bpm Accelerations: 15x15 and 10x10 Decelerations: None NST Results: Reactive Note NST Note Note: Nadia had contractions all night which were in an irregular pattern. She reports that she could not sleep. She is resting and coping with contractions well. SVE 2 cms/80 % / -1 Signs of labor reviewed. benadryl 50 mg given PO and rest at home encouraged. Return with signs of active labor. NST Reviewed and Verified by: Teresa Lyles
[2022-01-05 12:25] VITALS: BP 128/77; PULSE 108; TEMP 36.7
== END 2022-01-05 10:00 | disposition home or self-care (01) ==
LOC: BCD 07:39 → OBS 07:41
PROVIDERS: PCP Nurse Practitioner Family; Visit Provider Advanced Practice Midwife
DX: O47.1 False labor at or after 37 completed weeks of gestation (principal); R82.998 Other abnormal findings in urine; Z3A.40 40 weeks gestation of pregnancy
CPT/HCPCS: 59025; 87077; 87086; 87186; G0378

== ENCOUNTER 2022-01-06 07:56 | Outpatient (CLI) | payer OTHER, SELFPAY ==
[2022-01-06 08:31] VITALS: BP 122/77; PULSE 96; TEMP 36.6
[2022-01-06 08:56] VITALS: BP 122/77; PULSE 96
--- NOTE | 2022-01-06 10:14 | W.OBNST ---
Date of service: 01/06/22 Time of Service: 10:14 NST Evaluation Reason for NST Reasons for Nonstress Test: OTHER, SEE COMMENT Reason for NST Other: R/O labor Gestational Age Gestational Age in Weeks and Days: 40 Weeks and 1Days Test and Monitor Explained Test/Monitor Explained: Test Explained, Monitor Explained and Patient Verbalized Understanding Vital Signs Blood Pressure: 122/77 Pulse: 96 Temperature: 97.9 F NST Information Date on Monitor: 01/06/22 Time on Monitor: 08:37 Date off Monitor: 01/06/22 Time off Monitor: 09:15 Total Time on Monitor: 38 NST Interventions: PO Hydration NST Evaluation Patient States Movement: Present FHR Baseline: 135 Variability: Moderate 6-25 bpm Accelerations: 15x15 Decelerations: None NST Results: Reactive Note NST Note Note: Nadia has been having irregula contractions since 01/04 in the evening. She was evaluated at the Center yesterday morning and took benadryl x 2 yesterday for sleep with fair effect. She reports that she slept poorly last night. She declined exam today as it was uncomfortable for her yesterday. Her contractions were every 11-13 minutes apart and mild. reactive NST. I recommended returning home. She was offered ambien to take this afternoon at home for sleep if her labor does not increase in intensity and a prescription was sent. Signs of labor reviewed. NST Reviewed and Verified by: Teresa Lyles
[2022-01-06 10:17] VITALS: BP 122/77; PULSE 96; TEMP 36.6
== END 2022-01-06 09:16 | disposition home or self-care (01) ==
LOC: BCD 07:57 → OBS 08:19
PROVIDERS: PCP Nurse Practitioner Family; Visit Provider Advanced Practice Midwife
DX: O47.1 False labor at or after 37 completed weeks of gestation (principal); Z3A.40 40 weeks gestation of pregnancy
CPT/HCPCS: 59025

== ENCOUNTER 2022-01-07 11:15 | Inpatient (IN) | payer OTHER, SELFPAY ==
[2022-01-07] VITALS (13 sets, daily range): BP systolic 119–128; BP diastolic 68–79; PULSE 96–115; RESP 4–20; TEMP 36.2–37.3; O2SAT 98–99
[2022-01-07 11:59] LABS: Source Nasal/Nares
[2022-01-07 12:34] LABS: COVID-19 PCR Negative (Negative)
[2022-01-07 12:52] LABS: HCT 36.1 % (36.0-46.0); HGB 11.2 g/dL (11.2-15.7); MCH 24.2 pg (27.0-33.0); MCV 78 fL (80-95); MPV 10.2 fL (8.0-11.0); Platelet Count 528 10^3/uL (130-400); RBC 4.62 10^6/uL (3.93-5.22); RDW 15.5 % (11.7-14.6); RDW-SD 43.8 fL
--- NOTE | 2022-01-07 12:55 | HPE_ITS ---
Date of service: 01/07/22 Time of Service: 12:55 Assessment and Plan Assessment and plan (1) Irregular uterine contractions: Status: Acute Assessment and plan: A: 21 yo @ 40+2 wks Intact membranes, early labor, favorable cvx Category 1 tracing Prolonged prodromal sx at home (x3 days) GBS+, GDM diet controlled Known LGA per ultrasound EFW (90th percentile) Elevated risks for SD & PPH Valtrex prophylaxis since 36 wks, no genital lesions reported or seen P: Admit to inpt status, CBC, T&S, COVID swab Begin GBS prophylaxis Options reviewed w/pt: await spontaneous increase in labor, AROM offered Pt preference is to settle into room, consider AROM later this afternoon Pt status reviewed with Dr. 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 in the event she desires epidural (2) Group B Streptococcus carrier, +RV culture, currently : Status: Acute Assessment and plan: PCN prophylaxis is ordered (3) Upper respiratory infection with cough and congestion: Status: Acute Assessment and plan: RT consult done on admission, Updraft treatments ordered q4H prn (4) Gestational diabetes mellitus (GDM) affecting : Status: Acute Assessment and plan: Elevated glucola at 28 wks, 3 hr GTT had elevated fasting (97) and borderline 1 hr result (179) Pt did QID testing through the third trimester and reported nml levels EFW @ 36 wks in 90th percentile with nml BETHANY HgbA1C on admission today is elevated at 6.3 EFW by palpation is 4200 gms Plan for adequate trial of labor for desired SD precautions will be in place in event of vaginal delivery Dr. Laureano consulting and aware of pt status OB-HPI Labor/Delivery History of Present Illness Reason for Visit: r/o SROM, r/o Labor at Term Chief Complaint: Uterine Contractions (woke up at 0530 today with contractions every 6-7 minutes, lost more mucous plug, discharge was pink tinged, ); Suspected Rupture of Membranes , Associated Signs and Symptoms of Suspected ROM: had a trickle of clear fluid at 1030 this morning. MARLY Calculator Estimated Delivery Date Method Current WG Current Estimate 01/05/22 Ultrasound #1 40w 2d Other Estimates 01/10/22 LMP (Uncertain) 39w 4d History of Present Expected Delivery Route/Plan - CNM FOB/fiance - Elias Anthony (first child) BG - [place] GBS POSITIVE- PCN during labor Elias and her mother, Jai for support in labor Wants to be able to use tub Specific Issues/Plan 1. S/P left knee injury, no surgery needed, just PT 2. BMI=30, early glucola=73 2a. Glucola @ 28 zvc=631; 3 hr GTT= 97,179,126, 119- will start testing QID x 2 weeks, nutrition counseling. 2b. Growth US - 90th 5ile, BETHANY 8 3. Hx genital HSV, plan Valtrex daily at 36 wks 3a. Valtrex 1 gram escribed to take daily 4. Pt and FOB are COVID vaccinated but no booster 5. Desires cfDNA and CF/SMA screen. SMA & CF neg; cfDNA=low prob x5, female, AFP neg for ONTD 6. Start low dose ASA 18mg/162mg @ 12 wks for Nulliparity & BMI 7. Nipples are somewhat flat, plan for LC consult after 36 wks ____ 8. Leg cramps - magnesium 1-2 x per day recommended. 9. Rt popliteal vericose vein with discomfort, no evidence of phlebitis, Dopper/US-nml- wearing compression stockings. 10. Mild anemia at 28 wks, hgb 10.3, start iron supplement. Hgb 11.9 @ 36 wks Assessment: History Reviewed & Current Review of Systems Narrative: ROS completed, URI x1-2 wks, not other contributory information other then HPI Respiratory Comments: cough with nasal congestion PFSH All Active Problems (Updated 01/07/22 @ 14:24 by Anuja Akers) Gestational diabetes mellitus (GDM) affecting (Acute) Upper respiratory infection with cough and congestion (Acute) Irregular uterine contractions (Acute) Group B Streptococcus carrier, +RV culture, currently (Acute) Varicose vein of leg (Acute) Obesity, Class I, BMI 30-34.9 (Acute) Recurrent genital HSV (herpes simplex virus) infection (Acute) (Acute) Medical History (Updated 01/07/22 @ 14:24 by Anuja Akres) Dysuria Elevated glucose demise before 20 weeks with retention of fetus History of anxiety state History of marijuana use History of prior cigarette smoking Left hamstring muscle strain Nausea and vomiting during prior to 22 weeks gestation No pertinent past medical history Tear of PCL (posterior cruciate ligament) of knee (~03/11/21) Uterine size-date discrepancy in third trimester UTI (urinary tract infection) Surgical History (Updated 06/24/21 @ 13:52 by Anuja Akers) Hx of dilation and curettage Hx of wisdom tooth extraction Family History Maternal Grandfather Colon cancer Social History (Updated 09/10/20 @ 16:18 by Darling Montez MD) Smoking/Tobacco Use Status: Former Tobacco Use Quit Date: 08/02/20 Tobacco: How many years used: 3 Smoking risk assessment performed?: Yes Alcohol Intake: never Drug use: Occasionally Substance use type: marijuana Details: 09/11/20 pt reports none today Number of Children: 0 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 Do you feel safe at home: Yes Do you feel safe in your relationship?: Yes Female Reproductive History Menstrual Age of Menarche: 8 Duration of menses: 6-7 days control method: none History History 2 Para 0 Hx # Term Pregnancies 0 Multiple births 0 Hx # Pregnancies 0 Ectopic pregnancies 0 AB induced 0 Hx Number of Living Children 0 AB spontaneous 1 Past Pregnancies Del. Date GA/Weeks # Preg Succ Route Wgt Sex Labor Lgth Anesth esia Location [facility] 09/11/20 10 No AOC Meds Allergies and Home Medications Allergies Allergy/AdvReac Type Severity Reaction Status Date / Time hair dye Allergy Intermediate Swelling/Ed Uncoded 01/01/22 14:24 aniceto Home Medications Medication Instructions Recorded Confirmed Type prenat.vits,jessy,vrt-hqmk-qxhey 1 tab PO DAILY 05/06/21 01/07/22 History aspirin 81 mg tablet,delayed 81 mg PO DAILY #90 tabs 06/24/21 01/07/22 Rx release magnesium 200 mg tablet 200 mg PO DAILY PRN 09/16/21 01/07/22 History ferrous sulfate 325 mg (65 mg 325 mg PO DAILY #60 tabs 10/16/21 01/07/22 Rx iron) tablet blood-glucose meter (FreeStyle #1 ea 10/31/21 01/07/22 Rx Lite Meter kit) lancets 28 gauge (FreeStyle #100 ea 10/31/21 01/07/22 Rx Lancets) valacyclovir 1 gram tablet 1,000 mg PO DAILY #30 tabs 11/27/21 01/07/22 Rx (Valtrex) pantoprazole 40 mg tablet,delayed 40 mg PO DAILY #30 tabs 12/18/21 01/07/22 Rx release (Protonix) lancets 28 gauge (FreeStyle 01/05/22 01/07/22 History Lancets) zolpidem 10 mg tablet (Ambien) 10 mg PO QHS PRN sleep #1 tab 01/06/22 01/07/22 Rx Exam Physical Exam Vital signs: Temp Pulse Resp BP Pulse Ox 97.9 F 99 H 18 126/79 98 01/07/22 11:45 01/07/22 11:55 01/07/22 11:45 01/07/22 11:48 01/07/22 11:55 Vital Signs Reviewed: Yes Notable Details: maternal elevation in heart rate noted Constitutional Constitutional: no acute distress, obese and cooperative Detailed Labor and Delivery Exam Dilation: 5 Effacement (%): 100 station: -3 (soft forebag palpable) Position: LOP Cervix position: mid Consistency: soft RANGEL Score(Cervical Ripeness Score): 9 Amniotic Membrane Status: Intact Pooling: Negative Nitrazine: Negative Ferning: Absent Contraction Frequency(min): 1-2 in 10 minutes Contraction Duration(sec): 60 Contraction Intensity: Mild/Moderate Fetus A Heart Rate Baseline: 140 Monitor Accelerations: 15 X 15 Monitor Decelerations: None Variability: Moderate (6-25 BPM) Categories: Category I Est. Weight: 9 lb 4.151 oz Est. Weight: 4200 gms HEENT Exam HEENT Exam: Normal Neck Exam Neck Exam: Normal Chest/Brest/Axilla Exam Chest Exam: Normal Breast Exam Breast Exam: Not Done Respiratory Exam Respiratory Exam: Abnormal (rales and wheezing audible throughout all lung [place], pt coughing; 02 sat 99%, pulse 110-120) Cardiovascular Exam Cardiovascular Exam: Abnormal (maternal tachycardia noted) Abdominal Exam Abdominal Exam: Normal (Gravid, nontender, S>D) Rectal Exam Rectal Exam: Normal Exam Exam: Normal (no HSV lesions in evidence) Extremities Exam Extremities Exam: Normal Back/Spine/Pelvis Exam Back Exam: Normal Pelvis Adequate: Yes Skin Exam Skin Exam: Normal Neurological Exam Neurological Exam: Normal Psychiatric Exam Psychiatric Exam: Normal Results Results Group Beta Strep: Positive Blood Type: A+ Rubella Status: Immune Varicella Immunity: Immune Abnormal Lab Findings: Abnormal Labs 01/07/22 12:23 WBC 11.80 H MCV 78 L MCH 24.2 L MCHC 31.0 L RDW 15.5 H Plt Count 528 H Risk Assessment Risk for Shoulder Dystocia Historical/Initial OB: POSITIVE FOR: Pre- BMI>30; NEGATIVE FOR: Pelvic Abnormality, Previous Shoulder Dystocia or Previous Macrosomia 40 Weeks: NEGATIVE FOR: EFW> 4500 gms, Maternal Weight Gain >40lb or Post Dates Increased Risk?: Yes Counseling: elevated risk due to LGA per ultrasound, primiparity, GDM per 3 hr GTT, diet controlled Delivery Plan @ 40 wks: spont labor, Risk for Pre-Eclampsia Daily Dose ASA Indicated: Yes (BMI >30, primip) Date Initiated/Initials: to start ASA today 06/24/21. JK Yes, if one or more: NEGATIVE FOR: Hx Pre-E/Gest HTN, Chronic HTN, Multiple Gestation, Pre-gestational DM, Renal Disease, Systemic Lupus or APA Syndrome Yes, if 2 or more: POSITIVE FOR: Nulliparity and BMI>30; NEGATIVE FOR: Age>= 35 yrs, >10yr btwn pregnancies, ethinicty, Mother/Sister w/ Pre-E or Previous IUGR Risk for Post- Hemorrhage Initial: NEGATIVE FOR: Multiple Gestation, Previous PPH, Known Clotting Deficiency, Grand Multiparity or Anticoagulation At Risk?: Yes (prolonged prodromal phase over 3 days noted, LGA fetus) Counseled re: Active Management: Yes Risks Reviewed Risks Reviewed Upon Admission: Yes
[2022-01-07] MEDS: Penicillin G POT. 5,000,000 UNITS in Normal Saline 100 ML 200 UNITS IVPB (13:45)
[2022-01-07] MEDS: Levalbuterol 1.25 MG/3 ML UPD VIAL UPD (14:35)
[2022-01-07 14:42] LABS: Hemoglobin A1C 6.3 % (<5.7)
--- NOTE | 2022-01-07 16:12 | W.PM.OBNL1 ---
Date of service: 01/07/22 Time of Service: 16:12 Contractions Contraction Frequency(min): 2 in 10 minutes Contraction Duration(sec): 60 Intensity: Mild/Moderate Fetus A Heart Rate Baseline: 140 FHR Rhythm: Regular Characteristics: Normal Amniotic Membrane Status: Intact Assessment and Plan Assessment and plan (1) Irregular uterine contractions: Status: Acute Assessment and plan: A: primipara, spont labor URI, GBS P: Continue current therapies Observe for increasingly active labor AROM recommended if progress is slow Comfort measures as pt requests Objective Abnormal lab results 01/07/22 01/07/22 Range/Units 12:23 12:23 WBC 11.80 H (4.4-10.8) 10^3/uL MCV 78 L (80-95) fL MCH 24.2 L (27.0-33.0) pg MCHC 31.0 L (32.0-36.0) % RDW 15.5 H (11.7-14.6) % Plt Count 528 H (130-400) 10^3/uL Hemoglobin A1c 6.3 H (<5.7) % Temp Pulse Resp BP Pulse Ox 97.9 F 114 H 18 126/79 99 01/07/22 11:45 01/07/22 14:37 01/07/22 11:45 01/07/22 11:48 01/07/22 14:37 Laboratory Results WBC 11.80 10^3/uL (4.4-10.8) H 01/07/22 12:23 RBC 4.62 10^6/uL (3.93-5.22) 01/07/22 12:23 Hgb 11.2 g/dL (11.2-15.7) 01/07/22 12:23 Hct 36.1 % (36.0-46.0) 01/07/22 12:23 MCV 78 fL (80-95) L 01/07/22 12:23 MCH 24.2 pg (27.0-33.0) L 01/07/22 12:23 MCHC 31.0 % (32.0-36.0) L 01/07/22 12:23 RDW 15.5 % (11.7-14.6) H 01/07/22 12:23 Plt Count 528 10^3/uL (130-400) H 01/07/22 12:23 MPV 10.2 fL (8.0-11.0) 01/07/22 12:23 Hemoglobin A1c 6.3 % (<5.7) H 01/07/22 12:23 COVID-19 Source Nasal/Nares 01/07/22 11:20 SARS-CoV-2 (PCR) Negative (Negative) 01/07/22 11:20 Patient ABO/Rh A Positive 01/07/22 12:23 Antibody Screen NEGATIVE 01/07/22 12:23 Objective Narrative Objective Narrative: Pt has received respiratory treatment x1 and 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 Pt plans to use nitrous prior to deciding if she wants an epidural SVE & possible AROM offered, pt requests to shower and walk for an hour FHT's reassuring by intermittent auscultation Currently pt is using physio ball, FOB providing back massage Normotensive, afebrile, coping well, tolerating PO intake Subjective Interval history since last seen: Respiratory treatment was helpful, contractions are painful and there is back pain as well as pelvic pressure. Able to drink fluids and eat jello without emesis. Results Hemoglobin/Hematocrit: Hgb 11.2 g/dL (11.2-15.7) 01/07/22 12:23 Hct 36.1 % (36.0-46.0) 01/07/22 12:23 Abnormal Lab Findings: Abnormal Labs 01/07/22 01/07/22 12:23 12:23 WBC 11.80 H MCV 78 L MCH 24.2 L MCHC 31.0 L RDW 15.5 H Plt Count 528 H Hemoglobin A1c 6.3 H
[2022-01-07] MEDS: Normal Saline Flush 10 ML SYR IVP ×2 (17:46→22:14)
[2022-01-07] MEDS: Penicillin G POT. 3,000,000 UNITS in Normal Saline 50 ML 100 UNITS IVPB ×2 (17:47→22:15)
--- NOTE | 2022-01-07 19:51 | PGE_ITS ---
Date of service: 01/07/22 Time of Service: 19:51 Informed Consent Informed Consent: Augmentation of Labor, Regional Anesthesia, Risk,Benefits,Alternatives Discussed and Other (Discussion about AROM, epidural anesthesia, possible pitocin augmentation.) Pelvic Exam Dilation: 6 station: -3 Position: LOP Cervix Position: anterior Consistency: soft Contractions Monitor Mode: External Contraction Frequency(min): 1-2 in 10 minutes Intensity: Moderate Fetus A Monitor: External (US) Heart Rate Baseline: 140 Presentation: Cephalic Variability: Moderate (6-25 BPM) Categories: Category I Accelerations: Present Decelerations: None Amniotic Membrane Status: Intact (forebag palpable) Assessment and Plan Assessment and plan (1) Upper respiratory infection with cough and congestion: Status: Acute Assessment and plan: COVID PCR negative. Pt declines second updraft treatment Pt disclosed close contact with her mother who currently has COVID Plan: will repeat COVID PCR tomorrow (2) Irregular uterine contractions: Status: Acute Assessment and plan: A: Inadequate labor pattern, minimal cervical change management consultant past few hours Category 1 tracing, intact membranes GBS adequately prophylaxed Pt currently using nitrous to good effect P: Lengthy and repeated discussions with pt and FOB about labor progress Options to increase labor reviewed (AROM, pit) Availability of regional anesthesia for rest also reviewed Pt requests recheck at 2200 (3) Gestational diabetes mellitus (GDM) affecting : Status: Acute Assessment and plan: Discussed with pt elevated HgbA1C result Diagnosis of GDM and LGA baby reviewed Pt verbalizes agreement with periodic POC blood sugar checks Random check this evening is 91 Objective Vital Signs Reviewed: Yes Subjective Interval history since last seen: Pt states she feels she is in a good head space and coping well, prefers to sit on physioball and use nitrous during contractions while FOB provides low back counter pressure for her back pain, occasionally applies warm compresses to area. Drinking sweet tea, had some crackers, also drinking water, not much appetite but no nausea or vomiting, no ROM, no bleeding. Pt has disclosed her mother is home sick with COVID, and she has had some close contact with her recently.
--- NOTE | 2022-01-07 22:03 | W.PM.OBNL1 ---
Date of service: 01/07/22 Time of Service: 22:03 Contractions Monitor Mode: Palpation Contraction Frequency(min): q4-6 minutes Contraction Duration(sec): 60 Intensity: Moderate Fetus A Monitor: Doppler Heart Rate Baseline: 140 FHR Rhythm: Regular Characteristics: Normal Accelerations: Present Decelerations: None Assessment and Plan Assessment and plan (1) Irregular uterine contractions: Status: Acute Assessment and plan: A: Inadequate labor pattern, slow progress Pt declining SVE or intervention at this time FHT checks are reassuring P: pt encouraged to rest AMAP between contractions continue nitrous, comfort measures as pt requests expectant management per pt desire intermittent auscultation with doptone per guidelines GBS prophylaxis q4 hrs Subjective Interval history since last seen: Pt declines vaginal exam, wishes to continue using nitrous oxide and position changes. She feels her contractions are getting closer and stronger, occasionally feels increased pelvic and vaginal pressure. Warm compress to lower back.
[2022-01-08] VITALS (157 sets, daily range): BP systolic 99–139; BP diastolic 52–87; PULSE 76–136; RESP 1–20; TEMP 36.5–37.1; O2SAT 83–100; BMI 33.0
--- NOTE | 2022-01-08 01:23 | NUR.NOTE ---
Nursing Note:Pt calm,cooperative. Contractions remain irregular, palpate moderate. Voiding cloudy yellow urine. Resting well in between cxs.
[2022-01-08] MEDS: Penicillin G POT. 3,000,000 UNITS in Normal Saline 50 ML 100 UNITS IVPB ×4 (02:12→14:00)
--- NOTE | 2022-01-08 06:13 | PGE_ITS ---
Date of service: 01/08/22 Time of Service: 06:14 Informed Consent Informed Consent: Augmentation of Labor, Regional Anesthesia, Risk,Benefits,Alternatives Discussed and Other (Questions addressed regarding AROM, epidural anesthesia, possible pitocin augmentation. At this time pt does not give consent for any interventions.) Pelvic Exam Dilation: 7 Effacement (%): 100 station: -2 Position: LOP Contractions Monitor Mode: External Contraction Frequency(min): q3-4 Contraction Duration(sec): 60 Intensity: Moderate Fetus A Monitor: External (US) Heart Rate Baseline: 150 Variability: Moderate (6-25 BPM) Categories: Category I Accelerations: Present Decelerations: Early Amniotic Membrane Status: Intact (forebag palpable) Assessment and Plan Assessment and plan (1) Irregular uterine contractions: Status: Acute Assessment and plan: A: Slow progression to 7/100% -2 intact Category 1 tracing 5th PCN infusion in progress Pt declines anesthesia or augmentation Maternal fatigue P: Will continue to offer pt options & recommendations in care Address questions and concerns, offer reassurances Will page [employer]BM[employer]IONS SPECIALIST for consult this morning Continue to monitor for progress and maternal/ wellbeing Will repeat COVID PCR today d/t recent close contact & URI sx Objective Objective Narrative Objective Narrative: Fasting POC glucose 88 this morning Pt appears tired, holding emesis bag while sitting on bed Breathing through contractions, not using nitrous as frequently Category 1 tracing; normotensive, afebrile, maternal HR 90's After SVE results discussed, pt requests another shower, declines AROM or regional anesthesia Subjective Interval history since last seen: Pt reports she was able to doze for a few minutes during the night, mostly moved about her room, used nitrous, showered. Increased levels of nausea, episodes of shakiness, increased feeling of pelvic pressure and pain, requesting vaginal exam, is thinking about regional anesthesia but states she really doesn't want an epidural, feeling nervous that her baby is large. No ROM, no bleeding. Still coughing now and then. States I am disappointed this is going so slowly.
--- NOTE | 2022-01-08 07:32 | ANES.PREOP_ITS ---
General Info Date of Service Date Performed: 01/08/22 Height: 5 ft 6.5 in Weight: 94.347 kg Body Mass Index (BMI): 33.0 Meds Allergies and Home Medications Allergies Allergy/AdvReac Type Severity Reaction Status Date / Time hair dye Allergy Intermediate Swelling/Ed Uncoded 01/01/22 14:24 aniceto Home Medication Medication Instructions Recorded prenat.vits,jessy,fgq-vazw-faipj 1 tab PO DAILY 05/06/21 aspirin 81 mg tablet,delayed 81 mg PO DAILY #90 tabs 06/24/21 release magnesium 200 mg tablet 200 mg PO DAILY PRN 09/16/21 ferrous sulfate 325 mg (65 mg 325 mg PO DAILY #60 tabs 10/16/21 iron) tablet blood-glucose meter (FreeStyle #1 ea 10/31/21 Lite Meter kit) lancets 28 gauge (FreeStyle #100 ea 10/31/21 Lancets) valacyclovir 1 gram tablet 1,000 mg PO DAILY #30 tabs 11/27/21 (Valtrex) pantoprazole 40 mg tablet,delayed 40 mg PO DAILY #30 tabs 12/18/21 release (Protonix) lancets 28 gauge (FreeStyle 01/05/22 Lancets) zolpidem 10 mg tablet (Ambien) 10 mg PO QHS PRN sleep #1 tab 01/06/22 Current Visit Medications: Current Medications Generic Name Dose Route Start Last Admin Trade Name Freq PRN Reason Stop Dose Admin Bupivacaine HCl 0 ml 01/08/22 07:27 Bupivacaine 0.25% Pres-Free 10 Ml Vial EP 01/08/22 07:28 NOW ONE Fentanyl 0 mcg 01/08/22 07:27 Fentanyl 100 Mcg/2 Ml Vial EP 01/08/22 07:28 NOW ONE Fentanyl/Ropivacaine 200 ml 01/08/22 07:30 Fentanyl/Ropivacaine 2 Mcg/Ml And 0.1% 200 Ml C[place] Cassette EP DIRECTED RUDY Sodium Chloride 500 mls @ 0 mls/hr 01/07/22 12:38 Saline 500ml Bags IV PRN PRN As Directed Penicillin G Potassium 3,000, 50 mls @ 100 mls/hr 01/07/22 18:00 01/08/22 06:05 000 units/ Sodium Chloride IVPB 100 mls/hr Q4H RUDY Administration IV Miscellaneous Supplies 1 each 01/07/22 12:45 Iv Access IV DIRECTED RUDY Levalbuterol HCl 1.25 mg 01/07/22 14:26 Levalbuterol 1.25 Mg/3 Ml Upd Vial UPD Q4H PRN PRN Sodium Chloride 0 ml 01/07/22 12:38 01/07/22 22:14 Normal Saline Flush 10 Ml Syr IVP 10 ml PRN PRN Administration PFSH Active Problems Active Problems: Problem Status Onset Code Gestational diabetes mellitus (GDM) affecting O24.419 Upper respiratory infection with cough and congestion J06.9 Irregular uterine contractions O47.9 Group B Streptococcus carrier, +RV culture, currently O99.820 Varicose vein of leg I83.90 Obesity, Class I, BMI 30-34.9 E66.9 Recurrent genital HSV (herpes simplex virus) infection A60.00 Z34.90 Medical History Medical History (Updated 01/07/22 @ 14:24 by Anuja Akers) Dysuria Elevated glucose demise before 20 weeks with retention of fetus History of anxiety state History of marijuana use History of prior cigarette smoking Left hamstring muscle strain Nausea and vomiting during prior to 22 weeks gestation No pertinent past medical history Tear of PCL (posterior cruciate ligament) of knee (~03/11/21) Uterine size-date discrepancy in third trimester UTI (urinary tract infection) Surgical History Surgical History (Updated 06/24/21 @ 13:52 by Anuja Akers) Hx of dilation and curettage Hx of wisdom tooth extraction Tobacco Smoking/Tobacco Use Status: Former Tobacco Use Alcohol Alcohol Intake: never Substance Use Substance use: Occasionally Substance use type: marijuana Details: 09/11/20 pt reports none today Prental History History 2 Para 0 Hx # Term Pregnancies 0 Multiple births 0 Hx # Pregnancies 0 Ectopic pregnancies 0 AB induced 0 Hx Number of Living Children 0 AB spontaneous 1 Past Pregnancies Del. Date GA/Weeks # Preg Succ Route Wgt Sex Labor Lgth Anesth esia Location Prov [facility] 09/11/20 10 No AOC Vital Signs and Lab Results Vital Signs Most Recent Vital Signs in EMR: Most Recent Vital Signs Temp Pulse Resp BP Pulse Ox 36.9 C 91 H 20 130/72 99 01/08/22 05:42 01/08/22 05:41 01/08/22 05:42 01/08/22 05:40 01/08/22 05:41 Point of Care Results Point of Care Results: Finger Stick Blood Glucose 88 01/08/22 05:49 Lab Results Result Diagrams: 01/07/22 12:23 Blood Type / Crossmatch: Patient ABO/Rh A Positive 01/07/22 Antibody Screen NEGATIVE 01/07/22 Complete Blood Count: White Blood Count 11.80 10^3/uL (4.4-10.8) H 01/07/22 12:23 Red Blood Count 4.62 10^6/uL (3.93-5.22) 01/07/22 12:23 Hemoglobin 11.2 g/dL (11.2-15.7) 01/07/22 12:23 Hematocrit 36.1 % (36.0-46.0) 01/07/22 12:23 Platelet Count 528 10^3/uL (130-400) H 01/07/22 12:23 Complete Metabolic Panel: Hemoglobin A1c 6.3 % (<5.7) H 01/07/22 12:23 Liver Function Panel: No Data to Display Coagulation Panel: No Data to Display Cardiac Panel: No Data to Display Arterial Blood Gas: No Data to Display Venous Blood Gas: No Data to Display Pancreas Panel: No Data to Display Thyroid Panel: No Data to Display Infectious Disease: Coronavirus (COVID-19)(PCR) Negative (Negative) 01/07/22 11:20 Coronavirus 2019 Source Nasal/Nares 01/07/22 11:20 Blood Cultures: No Data to Display Toxicology Panel: Urine Amphetamines Screen Negative (Negative) 12/11/21 09:20 Urine Benzodiazepines Screen Negative (Negative) 12/11/21 09:2 0 Urine Barbiturates Screen Negative (Negative) 12/11/21 09:20 Urine Cocaine Screen Negative (Negative) 12/11/21 09:20 Urine Methadone Screen Negative (Negative) 12/11/21 09:20 Urine Opiates Screen Negative (Negative) 12/11/21 09:20 Ur Tricyclic Antidepressants Screen Negative (Negative) 09:20 Ur Tetrahydrocannabinol (THC) Scrn Negative (Negative) 2 09:20 Panel: No Data to Display Anesthesia Assessment and Plan Anesthesia History Personal History: No History of Anesthesia Complications Family History: No Family History of Anesthesia Complications Exercise Tolerance Exercise Tolerance: Metabolic Equivalents>4 Pertinent Negatives Pertinent Negatives: No Major Cardiovascular Symptoms or Complaints, No Major Pulmonary Symptoms or Complaints, No History of CVA/TIA and Other (Resolving head/chest cold) Cardiac & Pulmonary Exam Cardiac Exam: Normal S1/S2 Heart Sounds Pulmonary Exam: Clear Bilateral Breath Sounds Implantable Cardiac Device Does patient have a Pacemaker or an ICD?: No Airway Exam Known Difficult Airway: No Mallampati Class: 2 Mouth Opening: Normal (> 3cm) Thyromental Distance: Greater than 3 cm Neck Range of Motion: Full ROM Neck Circumference: Normal Teeth Condition: Normal Dentition (Some loose teeth) ASA Classification ASA Score: ASA 2 Emergency Case?: No NPO Status NPO Status: NPO Clears >2 hours, Solids >8 hours Status Status: Confirmed Anesthesia Plan Resuscitation Status: Full Code Anesthesia Technique: Epidural Anesthesia Airway Planned: Natural Airway Monitors Used: Standard Monitors
[2022-01-08 07:37] LABS: Source Nasal/Nares
[2022-01-08] MEDS: fentaNYL 100 MCG/2 ML VIAL EP (08:01)
[2022-01-08] MEDS: Bupivacaine 0.25% Pres-Free 10 ML VIAL EP (08:01)
--- NOTE | 2022-01-08 08:12 | W.ANESNEU ---
Epidural/Spinal Catheter Date Performed: 01/08/22 Procedure Start: 07:51 Procedure Stop: 08:16 Requesting Provider: Anuja Akers Procedure Location: Obstetrics Reason Performed: Labor Epidural Standard Monitors Applied: Blood Pressure, SpO2 and See EMR for corresponding vital signs Patient Position: Sitting Sedation Given (Indicate Dose Given): No Sedation given Patient Mental Status: Awake Sterility: Hand Hygiene, Surgical Cap, Surgical Mask, Sterile Gloves, Sterile Drape/Sheet and Chlorhexidine Procedure Location: L2-L3 Interspace Epidural Needle: Tuohy 18 Gauge Needle Length: 3.5 Inch Needle Approach: Midline Epidural Procedure: Skin Prepped, Sterile Drape Placed, 1% Lidocaine to skin and subcutaneous tissue with 25G needle, Tuohy Needle placed, CHARLENE to Saline Used, Epidural Catheter Placed, Negative Heme, Negative CSF Flow and Tuohy Needle Removed Catheter Placed?: Catheter Placed Test Dose (Indicate Dose Given): 3ml 1.5% Lidocaine with 1:200K Epinephrine Given and Negative Test Dose Loss of Resistance Depth (cm): 7 Catheter depth at skin (cm): 13 Dressing: [place]orbaview Dressing Placed and Mastisol Used Epidural Provider Bolus (Indicate Dose Given): Total bolus dose given in 3-5 ml divided doses and Total Bupivacaine 0.25% Given (ml) Dose:: 6 ml Additives (Indicate Dose Given ): Fentanyl PF Dose:: 100 mcg Infusion Medication: Medication Infusion Began Medication Infusion: Ropivacaine 0.1% with Fentanyl 2mcg/ml Maintenance Infusion Rate (ml/hour): 10 PCEA Bolus Dose (ml): 5 Block Level: N/A Paresthesia: None Ultrasound: Not Used Number of Attempts (See previous attempts in note section): 2 Procedure Tolerated: No Complications and Patient tolerated well Procedure Outcome: Successful Performed By: Lydia Denney
[2022-01-08] MEDS: FentaNYL/ROPIvacaine 2 mcg/ml and 0.1% 200 ML CADD Cassette EP (08:16)
[2022-01-08 08:21] LABS: COVID-19 PCR Negative (Negative)
[2022-01-08] MEDS: Lactated Ringers 1,000 ML 125 ML IV ×2 (08:53→15:45)
--- NOTE | 2022-01-08 09:42 | W.PM.OBNL1 ---
Date of service: 01/08/22 Time of Service: 09:42 Informed Consent Informed Consent: Augmentation of Labor, Regional Anesthesia, Risk,Benefits,Alternatives Discussed and Other (Consents to chen catheter, AROM and IUPC) Pelvic Exam Dilation: 7 Effacement (%): 100 station: -2 Position: LOT Fetus A Categories: Category I Amniotic Membrane Status: Ruptured Rupture Method: Artifical Amniotic Fluid: Meconium Date of Membrane Rupture: 01/08/22 Time of Membrane Rupture: 09:35 Assessment and Plan Assessment and plan (1) Long duration of labor: Status: Acute Assessment and plan: A: Effective epidural anesthesia IUPC working well GBS prophylaxis Category 1 tracing, meconium fluid P: Pitocin augmentation if indicated Encourage rest/sleep while comfortable Fosfomycin 3 mg PO for UTI Updrafts q4 hr prn Dr. Montez aware of pt status Continuous EFM, clear liquids Evaluate for labor adequacy & progress per guidelines Objective Pt states she is pleased with epidural, very happy to be comfortable Was able to have some breakfast, consents to AROM, chen and IUPC Discussed pit aug w/pt, she consents if needed Urine C&S from earlier this week are UTI +Klebsiella: will Rx Pt requests repeat updraft treatment for cough Repeat COVID PCR is negative Potential indications for c/s discussed w/pt ( intolerance of labor, arrest disorder) AROM easily done for +meconium fluid, IUPC inserted with ease FHT remain category 1 Vital Signs Reviewed: Yes Subjective Interval history since last seen: Epidural anesthesia providing good relief, pt drowsy.
[2022-01-08] MEDS: Fosfomycin Tromethamine 3 GM PACKET PO (09:47)
[2022-01-08] MEDS: Levalbuterol 1.25 MG/3 ML UPD VIAL UPD (10:10)
[2022-01-08] MEDS: Oxytocin/Normal Saline 30 UNIT/500 ML BAG 2 UNITS IV (10:28)
--- NOTE | 2022-01-08 15:16 | NUR.NOTE ---
Note: This RN assumed care. CNM at nurses station reviewing strip with day and evening nurses. CNM agreed that pit should be lowered. this rn changed pit to 4. pedi aware per cnm.
--- NOTE | 2022-01-08 15:55 | PGE_ITS ---
Date of service: 01/08/22 Time of Service: 15:55 Informed Consent Informed Consent: Augmentation of Labor Pelvic Exam Dilation: 8.5 (asymetric: 9 on mother's right, 8 on left, anterior lip edematous) Effacement (%): 100 station: -1 Contractions Monitor Mode: External Contraction Frequency(min): q2-3 Contraction Duration(sec): 60-70 Fetus A Monitor: External (US) Heart Rate Baseline: 160 Variability: Minimal (1-5 BPM) Categories: Category II (due to minimal variability, baseline change from 140 to 160) CategoryII Plan of Care: Observation, Reassess, Medical Consult and Continuous Monitoring/Observation Decelerations: None Amniotic Membrane Status: Ruptured Assessment and Plan Assessment and plan (1) Long duration of labor: Status: Acute Assessment and plan: A: Pit augmentation was at 6 mu/min but now down to 4 d/t tachysystole Progressed to 8-9 cm dilation, minimal descent Noted rise in baseline to 160's over past 2-3 hrs and decrease in variabili ty P: updated; tracing reviewed Maternal position changes to facilitate rotation & descent Pitocin titration per guidelines Reassess in 2 hrs Subjective Interval history since last seen: Epidural remains effective, has slept for a couple of hours. Occasionally feels some pelvic pressure.
--- NOTE | 2022-01-08 17:07 | NUR.NOTE ---
MD Pamela Harrison and Sesar Grider at nursing station reviewing strip with RN. Doing a huddle of plan and reviewing patient. :
--- NOTE | 2022-01-08 18:36 | OBCE_ITS ---
Date of service: 01/08/22 Time of Service: 18:36 Assessment and Plan Assessment and plan (1) Gestational diabetes mellitus (GDM) affecting : Status: Acute (2) Group B Streptococcus carrier, +RV culture, currently : Status: Acute Assessment and plan: Patient has received excellent GBS prophylaxis. (3) Abnormal labor: Status: Acute Assessment and plan: The plan is to proceed with a primary unscheduled low transverse deli very .Pt was informed of the risks of procedure including risk of damage to bowel, bladder, and blood vessels during the time of the delivery. If any of those injuries were to occur she may require a repair at the time of surgery or blood transfusion or possible hysterectomy. I reviewed the risk of infection and the administration of IV Abx prior to the surgery. Informed consent was obtained. Her questions were answered. OR crew has been notified. History of Present Illness History of Present Illness Chief Complaint: Arrest of dilation in labor. IUP at 40w3d EGA Narrative: Patient is a 21-year-old G2, P0 female currently 40 W3D EGA who was admitted to the center under the care of the CN service on 01/07/2022. Patient presented with prodromal labor and was found to be 6 cm dilated late in the evening of admission. On the morning of 01/07/2022 she had assisted rupture membranes at 7 cm progressed to 9 cm dilation with the minus once vertex station despite a labor with oxytocin. After she had essentially no cervical change after several hours with seemingly adequate contractions decision was made to proceed with a urgent unscheduled delivery. course remarkable for GBS+, GDM diet controlled, known LGA per ultrasound EFW (90th percentile) and Valtrex prophylaxis since 36 wks, no genital lesions reported or seen ? ? ? Consults Consult date: 01/08/22 Requesting physician: Anuja Akers Review of Systems All systems reviewed & are unremarkable except as noted in HPI and below PFSH All Active Problems (Updated 01/08/22 @ 18:49 by Darling Montez MD) Abnormal labor (Acute) Long duration of labor (Acute) Gestational diabetes mellitus (GDM) affecting (Acute) Upper respiratory infection with cough and congestion (Acute) Group B Streptococcus carrier, +RV culture, currently (Acute) Varicose vein of leg (Acute) Obesity, Class I, BMI 30-34.9 (Acute) Recurrent genital HSV (herpes simplex virus) infection (Acute) (Acute) Medical History (Updated 01/08/22 @ 18:49 by Darling Montez MD) Dysuria Elevated glucose demise before 20 weeks with retention of fetus History of anxiety state History of marijuana use History of prior cigarette smoking Irregular uterine contractions Left hamstring muscle strain Nausea and vomiting during prior to 22 weeks gestation No pertinent past medical history Tear of PCL (posterior cruciate ligament) of knee (~03/11/21) Uterine size-date discrepancy in third trimester UTI (urinary tract infection) Surgical History (Updated 06/24/21 @ 13:52 by Anuja Akers) Hx of dilation and curettage Hx of wisdom tooth extraction Family History Maternal Grandfather Colon cancer Social History (Updated 09/10/20 @ 16:18 by Darling Montez MD) Smoking/Tobacco Use Status: Former Tobacco Use Quit Date: 08/02/20 Tobacco: How many years used: 3 Smoking risk assessment performed?: Yes Alcohol Intake: never Drug use: Occasionally Substance use type: marijuana Details: 09/11/20 pt reports none today Number of Children: 0 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 Do you feel safe at home: Yes Do you feel safe in your relationship?: Yes Female Reproductive History Menstrual Age of Menarche: 8 Duration of menses: 6-7 days control method: none History History 2 Para 0 Hx # Term Pregnancies 0 Multiple births 0 Hx # Pregnancies 0 Ectopic pregnancies 0 AB induced 0 Hx Number of Living Children 0 AB spontaneous 1 Past Pregnancies Del. Date GA/Weeks # Preg Succ Route Wgt Sex Labor Lgth Anesth esia Location Prov [facility] 09/11/20 10 No AOC Exam Const General: no acute distress (Sitting semifollows position in bed) Nutritional Appearance: obese Orientation: alert, awake and oriented x3 Resp Effort & Inspection: normal respiratory effort Auscultation: clear to auscultation bilaterally Cardio Rate: regular rate Rhythm: regular rhythm GI Other: Uterus is gravid estimated weight 4000 g. Vertex. No right upper quadrant tenderness. SVE deferred. heart rate tracing category 1, contractions every 2 to 4 minutes. Skin General skin exam: no rashes or lesions noted (Tattoos. Multiple face piercings.) Extrem General: normal to inspection (DTRs decreased bilaterally) Psych Appearance: grossly normal Mental Status: mental status grossly normal and other (Visibly fatigued) Speech and Movement: speech and movement normal Mood: anxious mood and other (Visibly fatigued) Affect: anxious affect Attitude: cooperative Thought Process: normal Thought Content: normal Insight: insight good Judgment: judgment good Results Last Vital Signs Temp 98.0 F 01/08/22 17:19 Pulse 108 H 01/08/22 18:35 Resp 16 01/08/22 17:19 BP 127/70 01/08/22 18:34 Pulse Ox 100 01/08/22 18:35 Labs Result diagrams: 01/07/22 12:23 Labs: Laboratory Results - last 24 hr 01/08/22 07:15 COVID-19 Source Nasal/Nares SARS-CoV-2 (PCR) Negative
[2022-01-08] MEDS: AZITHROMYCIN 500 MG in Normal Saline 250 ML 250 MG IVPB (18:50)
--- NOTE | 2022-01-08 18:57 | NUR.NOTE ---
patient going to OR. report given to EM, RN at bedside.
[2022-01-08] MEDS: Bupivacaine 0.25% Pres-Free 30 ML VIAL (19:41)
[2022-01-08] MEDS: ceFAZolin 2 GM/50 ML BAG IVPB (19:51)
[2022-01-08] MEDS: Tranexamic Acid 1,000 MG/10 ML VIAL 1000 MG (19:53)
[2022-01-08] MEDS: Carboprost 250 MCG/ML AMP (19:54)
--- NOTE | 2022-01-08 21:02 | PDOC.OPNB_ITS ---
Date of service: 01/08/22 Time of Service: 21:05 Operative Note Operative Note Delivery Method: Unscheduled STAT: No and Primary NTSV>37 Weeks: Yes DATE OF PROCEDURE: 01/08/22 PRE-OP DIAGNOSES: IUP at 40w3d EGA, Gestational DM - diet controlled, arrest of dilation, PROCEDURE: Unscheduled primary low transverse delivery SURGEON: Darling Montez Assisting Surgeon: Anuja Akers Anesthesia: epidural Estimated blood loss (mL): 700 Pathology: other (Cord blood to lab) Complications: None Patient was transported to: PACU Patient's condition: stable Indications: 21-year-old G2 now P1 female who presented at 40 W2D EGA and prodromal labor. She had slow cervical change and received oxytocin augmentation of labor with a maximum dilatation of 9 cm. vertex remained at -1 station despite adequate contractions. Findings: Viable female in the direct OP presentation. Clear amniotic fluid. Normal uterus fallopian tubes and ovaries. Her parents intend to name her Abimbola Procedure Description: Patient was taken to the operating room she is placed in the dorsal supine position with a leftward tilt and her existing epidural was dosed to achieve adequate surgical anesthesia. SCDs and a Jha catheter to gravity drainage were already in place. A vaginal prep with Betadine was performed and the patient was prepped and draped in the usual sterile fashion.Surgical timeout was performed. Preoperative antibiotics were administered by anesthesia. After a adequate level of anesthesia was achieved a Pfannenstiel skin incision was made approximately 2 cm superior to the pubic symphysis using a scalpel and the underlying subcutaneous tissue dissected using Bovie electrocautery to the level of the rectus fascia. The rectus fascia was then nicked in the midline and the fascial incision extended laterally using Bovie electrocautery. 2 Cristobal clamps were applied to the inferior rectus fascia and the rectus fascia was dissected off of the underlying rectus muscles using Bovie electrocautery and blunt technique. A similar technique was carried out on the superior rectus fascia. Rectus muscles were then in the midline and the peritoneum entered bluntly. The peritoneal incision was extended laterally using blunt technique. A scalpel was used to incise the lower uterine segment in a transverse fashion. The uterine incision was extended bluntly and the amniotic sac was ruptured with clear amniotic fluid noted. A single gloved hand was placed into the uterine cavity and the head was successfully delivered through the uterine incision followed by the trunk and extremities with the assistance of fundal pressure. The cord was doubly clamped and cut and the handed off to the waiting pediatric team. Cord blood was obtained and the placenta was extracted with a combination of fu ndal massage and gentle cord traction. The uterus was exteriorized cleared of all clots and debris. Uterine tone required 1 g of Tranexamic Acid followed by 250mcg of Hemabate and vigorous massage of the uterine fundus. The uterine tone improved and the uterine incision was reapproximated with a running lock suture of 0 Vicryl followed by a second imbricating suture of 0 Vicryl. Uterine incision was noted be hemostatic. The uterus was returned to the abdomen and the paracolic gutters cleared of all clots and debris. Uterine incision and the along with the bladder flap and the abdominal wall were all inspected and noted to be hemostatic. Peritoneum was reapproximated with a running suture of 2-0 Vicryl. The rectus fascia was reapproximated with a running suture of 0 Vicryl. space within the subcutaneous tissue closed with a running suture of 2-0 Vicryl. The skin incision was reapproximated with a subcuticular closure of 4-0 Vicryl. Skin incision was sealed with skin glue. The uterus was massaged for any remaining clots and debris's. The patient was transported to PACU in stable condition. All sponge, lap, and needle counts correct x2.
--- NOTE | 2022-01-08 21:51 | PDOC.ANES ---
Date of service: 01/08/22 Time of Service: 21:11 Anesthesia Note Report Anesthesia Note: Epidural catheter pulled after c section, blue tip intact.
[2022-01-08] MEDS: Ketorolac 30 MG/ML VIAL IVP (22:02)
[2022-01-08] MEDS: Acetaminophen 325 MG TAB 650 MG PO (22:02)
[2022-01-09 00:58] VITALS: BP 102/67; PULSE 85
[2022-01-09] MEDS: Ketorolac 30 MG/ML VIAL IVP ×3 (03:49→16:38)
[2022-01-09] MEDS: Normal Saline Flush 10 ML SYR IVP ×3 (03:49→16:38)
[2022-01-09] MEDS: Lactated Ringers 1,000 ML 125 ML IV (06:00)
[2022-01-09 06:46] LABS: Abs Immature Grans 0.18 10^3/uL (0.0-0.06); Absolute Eosinophil Count 0.02 10^3/uL (0.0-0.7); Basophils % 0.3; Eosinophils % 0.1; HCT 26.7 % (36.0-46.0); Immature Grans % 0.8; Lymphocytes % 12.2; MCH 24.7 pg (27.0-33.0); MCHC 32.2 % (32.0-36.0); MCV 77 fL (80-95); Monocytes % 5.4; Neutrophils % 81.2; Platelet Count 434 10^3/uL (130-400); RBC 3.48 10^6/uL (3.93-5.22); RDW 15.9 % (11.7-14.6); RDW-SD 44.2 fL; WBC 22.46 10^3/uL (4.4-10.8)
[2022-01-09 06:47] LABS: Absolute Basophil Count 0.07 10^3/uL (0.0-0.2); Absolute Lymphocyte Count 2.74 10^3/uL (1.2-3.4); Absolute Monocyte Count 1.21 10^3/uL (0.1-0.8); Absolute Neutrophil Count 18.24 10^3/uL (1.2-6.7)
[2022-01-09 06:53] LABS: HGB 8.6 g/dL (11.2-15.7)
[2022-01-09 08:38] VITALS: BP 94/61; PULSE 102; RESP 18; TEMP 36.8; O2SAT 100
[2022-01-09 10:50] VITALS: BP 99/64; PULSE 99; RESP 16; TEMP 36.6; O2SAT 97
[2022-01-09] MEDS: Docusate Sodium 100 MG CAP PO (11:18)
--- NOTE | 2022-01-09 13:20 | W.ANESPOSTOP ---
Postoperative Evaluation Date, Time and Location Date Performed: 01/09/22 Time Performed: 09:00 Patient Location: Obstetrics Vital Signs Most Recent Imported Vital Signs: Most Recent Vital Signs Temp Pulse Resp BP Pulse Ox 36.8 C 102 H 18 94/61 L 100 01/09/22 08:38 01/09/22 08:38 01/09/22 08:38 01/09/22 08:38 01/09/22 08:38 Pain Score Most Recent Pain Score: Most Recent Pain Score Pain Level [Lower Abdomen] 2 01/09/22 10:50 Pain Level 2 01/09/22 10:42 Assessment Mental Status: Awake (Alert & Oriented to Patient Baseline) Airway and Respiratory Function: Patent airway with normal (patient baseline) respiratory exam Cardiovascular Function: Hemodynamically Stable Hydration Status: Adequately Hydrated Nausea & Vomiting: No Nausea or Vomiting Pain: Pt. Denies Any Pain Peripheral Nerve Block: Patient did not receive a nerve block
[2022-01-09] MEDS: Acetaminophen 325 MG TAB 650 MG PO (14:36)
[2022-01-09 16:15] VITALS: BP 110/77; PULSE 111; RESP 16; TEMP 36.4
--- NOTE | 2022-01-09 16:51 | W.PM.OBPNV1 ---
Date of service: 01/09/22 Time of Service: 16:52 Assessment and Plan Assessment and plan (1) Gestational diabetes mellitus (GDM) affecting : Status: Acute Assessment and plan: Her gestational diabetes was diet controlled. Patient will need a 75 g 2-hour glucose Kos tolerance test in the period (2) History of delivery: Status: Acute Assessment and plan: Postop day 1. Hemoglobin 8.4. Patient taking oral pain medicine with good results. Plan to encourage ambulation and support breast-feeding and plan to discharge home on 01/11/2022. Subjective Subjective Interval history: Pain controlled by NSAIDs, Acetaminophen Patient comments: Pain well controlled and Tolerating diet Patient's Mood: Good. Satisfied with progress. baby status: Doing well, Nursing well, Rooming in and Strong Bonding Observed feeding status: Exclusively breast feeding Narrative: Postop day 1 after unscheduled low transverse delivery. Patient had arrest of dilation and descent after oxytocin augmentation of labor. She has been out of bed today tolerating a regular diet and breast-feeding exclusively. She is not interested in discharge home tomorrow but is interested in discharge on 01/11/2022 Exam Physical Exam Vital signs: Temp Pulse Resp BP Pulse Ox 97.5 F L 111 H 16 110/77 97 01/09/22 16:15 01/09/22 16:15 01/09/22 16:15 01/09/22 16:15 01/09/22 10:50 Vital Signs Reviewed: Yes Constitutional Constitutional: no acute distress HEENT Exam HEENT Exam: Not Done Neck Exam Neck Exam: Normal Respiratory Exam Respiratory Exam: Normal Cardiovascular Exam Cardiovascular Exam: Normal Abdominal Exam Abdomen: Tender (Mildly tender at Pfannenstiel incision line) Fundal Exam Fundus: Below Umbilicus and Firm Rectal Exam Rectal Exam: Other Extremities Exam Extremity Exam: Normal Back/Spine/Pelvis Exam Back Exam: Normal Skin Exam Skin Exam: Normal Neurological Exam Neurological Exam: Normal Psychiatric Exam Psychiatric Exam: Normal Results Hemoglobin/Hematocrit: Hgb 8.6 g/dL (11.2-15.7) L D 01/09/22 06:35 Hct 26.7 % (36.0-46.0) L 01/09/22 06:35 Abnormal Lab Findings: Abnormal Labs 01/07/22 01/07/22 01/09/22 12:23 12:23 06:35 WBC 11.80 H 22.46 H RBC 3.48 L Hgb 8.6 L D Hct 26.7 L MCV 78 L 77 L MCH 24.2 L 24.7 L MCHC 31.0 L RDW 15.5 H 15.9 H Plt Count 528 H 434 H Absolute Neutrophils 18.24 H Absolute Monocytes 1.21 H Hemoglobin A1c 6.3 H
[2022-01-09] MEDS: oxyCODONE 5 mg/Acetaminophen 325 mg TAB PO ×2 (19:56→23:48)
[2022-01-09 20:51] VITALS: BP 115/77; PULSE 98; RESP 16; TEMP 36.3; O2SAT 96
[2022-01-09] MEDS: Ibuprofen 600 MG TAB PO (22:14)
[2022-01-10 00:05] VITALS: BP 114/75; PULSE 89; RESP 17; TEMP 36.6; O2SAT 96
[2022-01-10] MEDS: Ibuprofen 600 MG TAB PO ×3 (04:40→18:50)
[2022-01-10] MEDS: oxyCODONE 5 mg/Acetaminophen 325 mg TAB PO ×3 (08:08→18:50)
[2022-01-10] MEDS: Docusate Sodium 100 MG CAP PO ×2 (08:08→22:41)
[2022-01-10 08:10] VITALS: BP 111/73; PULSE 85; RESP 16; TEMP 36.4; O2SAT 97
--- NOTE | 2022-01-10 11:53 | OBPPV_ITS ---
Date of service: 01/10/22 Time of Service: 11:53 Assessment and Plan Assessment and plan (1) History of delivery: Status: Acute Assessment and plan: POD#2 s/p PCS, doing well. No significant concerns. Routine care. Plans d/c home tomorrow. Subjective Subjective Interval history: Pt is feeling well. OOB. Pain controlled on PO meds. neg n/v. Melissa PO intake. +flatus. Neg BM. Minimal lochia. Clinton baby status: Doing well and Strong Bonding Observed Clinton feeding status: Exclusively breast feeding Exam Physical Exam Vital signs: Temp Pulse Resp BP Pulse Ox 97.5 F L 85 16 111/73 97 01/10/22 08:10 01/10/22 08:10 01/10/22 08:10 01/10/22 08:10 01/10/22 08:10 Vital Signs Reviewed: Yes Constitutional Constitutional: no acute distress and cooperative Detailed HEENT Exam Head: Present normocephalic and atraumatic Respiratory Exam Respiratory Exam: Normal Abdominal Exam Abdomen: Tender (mildly) Comments: Incision clean, dry, intact Fundal Exam Fundus: Below Umbilicus and Firm Extremities Exam Extremity Exam: Edema (trace) Detailed Neurological Exam Neurological: Present alert, oriented X3 and CN II-XII intact Results Hemoglobin/Hematocrit: Hgb 8.6 g/dL (11.2-15.7) L D 01/09/22 06:35 Hct 26.7 % (36.0-46.0) L 01/09/22 06:35 Abnormal Lab Findings: Abnormal Labs 01/07/22 01/07/22 01/09/22 12:23 12:23 06:35 WBC 11.80 H 22.46 H RBC 3.48 L Hgb 8.6 L D Hct 26.7 L MCV 78 L 77 L MCH 24.2 L 24.7 L MCHC 31.0 L RDW 15.5 H 15.9 H Plt Count 528 H 434 H Absolute Neutrophils 18.24 H Absolute Monocytes 1.21 H Hemoglobin A1c 6.3 H
[2022-01-10 15:39] VITALS: BP 118/79; PULSE 103; RESP 16; TEMP 36.4; O2SAT 97
[2022-01-11] MEDS: oxyCODONE 5 mg/Acetaminophen 325 mg TAB PO ×2 (00:14→04:36)
[2022-01-11 00:15] VITALS: BP 115/80; PULSE 100; RESP 17; TEMP 36.6; O2SAT 97
[2022-01-11] MEDS: Ibuprofen 600 MG TAB PO ×2 (04:35→11:35)
[2022-01-11] MEDS: Docusate Sodium 100 MG CAP PO (08:14)
[2022-01-11 08:25] VITALS: BP 113/77; PULSE 101; RESP 16; TEMP 36.4
--- NOTE | 2022-01-11 11:12 | W.PM.OBDISCH ---
Date of service: 01/11/22 Time of Service: 11:12 DS: Diagnosis Discharge Diagnosis (1) History of delivery: Status: Acute Asessment and Plan: Routine care. Discharge Plan Disposition Patient Disposition: HOME Condition: Stable Discharge Details Reason For Visit: labor Admit Date/Time: 01/07/22 12:10 Admit Provider: Anuja Akers Attending Provider: Anuja Akers Primary Care Provider: Meg Garcia Hospital Course Hospital Course: Pt was admitted at 5cm. She progressed very slowly and eventually had a PCS for arrest disorder. The surgery was uneventful and she had a routine post-op course and was discharged on POD#3. Home Meds and New Rx's Prescriptions: New acetaminophen 325 mg Tablet 650 mg PO Q4H PRN PRNQty: 0 0RF docusate sodium [Colace] 100 mg Capsule 100 mg PO BID PRN PRNQty: 0 0RF ibuprofen 600 mg Tablet 600 mg PO Q6H PRN PRNQty: 30 0RF oxycodone 5 mg tablet 5 mg PO Q8H MDD 3 PRN (Reason: pain) Qty: 5 0RF Continued prenat.vits,jessy,nzx-lptc-wwdfs Tablet 1 tab PO DAILY magnesium 200 mg tablet 200 mg PO DAILY PRN ferrous sulfate 325 mg (65 mg iron) tablet 325 mg PO DAILY Qty: 60 3RF Discontinued aspirin 81 mg tablet,delayed release (DR/EC) 81 mg PO DAILY Qty: 90 3RF Label Comments: patient states she has not taken in awhile Rx Instructions: 1 tab daily, alternate with 2 tabs every other day valacyclovir [Valtrex] 1 gram tablet 1,000 mg PO DAILY Qty: 30 1RF pantoprazole [Protonix] 40 mg tablet,delayed release (DR/EC) 40 mg PO DAILY Qty: 30 0RF Label Comments: takes PRN (DME) blood-glucose meter [FreeStyle Lite Meter] Kit See Rx Instructions .ROUTE .MEDSUPPLY Qty: 1 0RF Rx Instructions: As directed (DME) lancets [FreeStyle Lancets] 28 gauge misc See Rx Instructions .ROUTE .MEDSUPPLY Qty: 100 4RF Rx Instructions: testing QID zolpidem [Ambien] 10 mg tablet 10 mg PO QHS PRN (Reason: sleep) Qty: 1 0RF (DME) lancets [FreeStyle Lancets] 28 gauge misc See Rx Instructions .ROUTE .MEDSUPPLY Rx Instructions: testing QID Discharge Instructions Stand Alone Forms: BC Instructions, BC Discharge Instruc Activity:: No lifting >20lbs Equipment/Supplies:: No Equipment Needed Diet:: As Tolerated Discharge Orders Discharge Orders: Discharge Order (Routine); Ordered 01/11/22 Ordered By: Geena Laureano OB:DS Summary Summary Delivery Method: Unscheduled Contraception Discussed Contraception Discussed: Yes Contraceptive Plan: Control Pill/Patch, [place] Infant Gender-Baby A: Female weight: 8 lb 13.272 oz Status at Discharge Functional status at discharge: independent ambulation Overall status at discharge: patient is back to baseline Mental Status: mental status grossly normal Speech and Movement: speech and movement normal Mood: congruent mood Affect: normal affect Exam Physical Exam Vital signs: Temp Pulse Resp BP Pulse Ox 97.5 F L 101 H 16 113/77 97 01/11/22 08:25 01/11/22 08:25 01/11/22 08:25 01/11/22 08:25 01/11/22 00:15 PFSH All Active Problems (Updated 01/11/22 @ 11:27 by Geena Laureano MD) History of delivery (Acute) 01/08/2022. Arrest of dilation and descent. Whit Daily. 4005 g Varicose vein of leg (Acute) Obesity, Class I, BMI 30-34.9 (Acute) Recurrent genital HSV (herpes simplex virus) infection (Acute) Medical History (Updated 01/11/22 @ 11:27 by Geena Laureano MD) History of anxiety state History of marijuana use History of prior cigarette smoking Left hamstring muscle strain Tear of PCL (posterior cruciate ligament) of knee (~03/11/21) UTI (urinary tract infection) Surgical History (Updated 01/09/22 @ 17:01 by Darling Montez MD) Hx of dilation and curettage Hx of wisdom tooth extraction Family History Maternal Grandfather Colon cancer Social History (Updated 09/10/20 @ 16:18 by Darling Montez MD) Smoking/Tobacco Use Status: Former Tobacco Use Quit Date: 08/02/20 Tobacco: How many years used: 3 Smoking risk assessment performed?: Yes Alcohol Intake: never Drug use: Occasionally Substance use type: marijuana Details: 09/11/20 pt reports none today Number of Children: 0 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 Do you feel safe at home: Yes Do you feel safe in your relationship?: Yes Female Reproductive History Menstrual Age of Menarche: 8 Duration of menses: 6-7 days control method: none History History 2 Para 0 Hx # Term Pregnancies 0 Multiple births 0 Hx # Pregnancies 0 Ectopic pregnancies 0 AB induced 0 Hx Number of Living Children 0 AB spontaneous 1 Past Pregnancies Del. Date GA/Weeks # Preg Succ Route Wgt Sex Labor Lgth Anesthesia Location [facility] 09/11/20 10 No AOC DS: Data Vitals/I&O Vitals and I&O: Vital Signs Temperature 97.5 F L 01/11/22 08:25 Pulse 101 H 01/11/22 08:25 Pulse Rhythm Regular 01/11/22 08:25 Respiratory Rate 16 01/11/22 08:25 Respiratory Depth Normal 01/11/22 00:15 Blood Pressure 113/77 01/11/22 08:25 Blood Pressure Mean 89 01/11/22 08:25 Pulse Oximetry 97 01/11/22 00:15 Oxygen Delivery Method Room Air 01/08/22 20:55 Oxygen Flow Rate 0 01/08/22 10:10 Pain Level 2 01/11/22 08:25 Comment 01/08/22 12:33 Intake & Output 01/10/22 01/10/22 01/11/22 11:59 23:59 11:59 Output Total 600 / 600 Balance -600 / -600 Output: Urine 600 / 600 Other: Urine Color Light Mariana Yellow
[2022-01-11] MEDS: Acetaminophen 325 MG TAB 650 MG PO (11:37)
== END 2022-01-11 12:30 | disposition home or self-care (01) | DRG 787 ==
PROVIDERS: Obstetrics & Gynecology Gynecology; Admitting Provider Advanced Practice Midwife; PCP Nurse Practitioner Family; Visit Provider Advanced Practice Midwife
PROC: 10D00Z1 Extraction of Products of Conception, Low, Open Approach (ICD-10-PCS; CPT 59514; principal; 2022-01-08 18:55)
DX: O36.63X0 Maternal care for excessive fetal growth, third trimester, not applicable or unspecified (principal); O98.32 Other infections with a predominantly sexual mode of transmission complicating childbirth; O99.824 Streptococcus B carrier state complicating childbirth; O24.420 Gestational diabetes mellitus in childbirth, diet controlled; Z37.0 Single live birth; Z3A.40 40 weeks gestation of pregnancy; O99.52 Diseases of the respiratory system complicating childbirth; A60.00 Herpesviral infection of urogenital system, unspecified; O99.02 Anemia complicating childbirth; D64.9 Anemia, unspecified; O87.4 Varicose veins of lower extremity in the puerperium; O99.214 Obesity complicating childbirth; E66.9 Obesity, unspecified; O62.2 Other uterine inertia; O62.1 Secondary uterine inertia; Z20.822 Contact with and (suspected) exposure to COVID-19; J06.9 Acute upper respiratory infection, unspecified; O63.1 Prolonged second stage (of labor)
CPT/HCPCS: 59514; 36415; 85027; 86850; 86900; 86901; 87635; 83036; 85025; 94640; 94667; 94668; J0456; J0690; J1885; J2370; J2405; J2540; J3010; J3490; J7614

== ENCOUNTER 2022-02-19 16:34 | Outpatient (REF) | payer OTHER, MEDICAID, SELFPAY | END 2022-02-19 16:35 | disposition home or self-care (01) | LOC: LBN 16:34 | PROVIDERS: PCP Nurse Practitioner Family; Visit Provider Advanced Practice Midwife | DX: N89.8 Other specified noninflammatory disorders of vagina (principal) | CPT/HCPCS: 87480; 87510; 87660 ==

== ENCOUNTER 2022-11-18 08:03 | Emergency (ER) | payer MEDICAID, SELFPAY ==
[2022-11-18 08:12] VITALS: BP 111/70; PULSE 74; RESP 16; TEMP 36.7; O2SAT 98
--- NOTE | 2022-11-18 09:31 | ED.GENADUL_ITS ---
Discharge Plan Disposition Patient Disposition: Left Without Being Seen Condition: Stable Discharge Details Primary Care Provider: Meg Garcia ED Provider: Provider,Temporary Medical Decision Making PAtient left from , not seen by me. XR was ordered from , patient left prior to exam and imaging. LWBS. HPI General Date/Time Provider Initiated Documentation: 11/18/22 08:29 . Related Data Home Medications Medication Instructions Recorded Confirmed prenat.vits,jessy,rya-jfcx-xnksy 1 tab PO DAILY 05/06/21 04/16/22 magnesium 200 mg tablet 200 mg PO DAILY PRN 09/16/21 04/16/22 ferrous sulfate 325 mg (65 mg 325 mg PO DAILY #60 tabs 10/16/21 04/16/22 iron) tablet acetaminophen 325 mg tablet 650 mg PO Q4H PRN PRN #0 tabs 01/11/22 04/16/22 miconazole nitrate 2 % (100 mg)-2 1 pkg vaginal HS 7 days #44 grams 02/19/22 02/19/22 %(9 gram) vaginal,prefill appl,cream (Monistat 7) norethindrone (contraceptive) 0.35 0.35 mg PO DAILY #84 tabs 02/19/22 02/19/22 mg tablet (Kristin) valacyclovir 1 gram tablet 1,000 mg PO BID #14 tabs 02/19/22 02/19/22 (Valtrex) Previous Rx's Medication Instructions Recorded ferrous sulfate 325 mg (65 mg 325 mg PO DAILY #60 tabs 10/16/21 iron) tablet acetaminophen 325 mg tablet 650 mg PO Q4H PRN PRN #0 tabs 01/11/22 miconazole nitrate 2 % (100 mg)-2 1 pkg vaginal HS 7 days #44 grams 02/19/22 %(9 gram) vaginal,prefill appl,cream (Monistat 7) norethindrone (contraceptive) 0.35 0.35 mg PO DAILY #84 tabs 02/19/22 mg tablet (Kristin) valacyclovir 1 gram tablet 1,000 mg PO BID #14 tabs 02/19/22 (Valtrex) Allergies Allergy/AdvReac Type Severity Reaction Status Date / Time hair dye Allergy Intermediate Swelling/Ed Uncoded 11/18/22 08:17 aniceto General Stated Complaint: Laceration CONRADO: 4 PFSH All Active Problems (Updated 02/24/22 @ 09:10 by Teresa Lyles CNM) Elevated hemoglobin A1c (Acute) Herpes labialis without complication (Acute) Vaginal discharge (Acute) History of delivery (Acute) 01/08/2022. Arrest of dilation and descent. Whit Daily. 4005 g Varicose vein of leg (Acute) Obesity, Class I, BMI 30-34.9 (Acute) Recurrent genital HSV (herpes simplex virus) infection (Acute) Medical History (Updated 02/24/22 @ 09:10 by Teresa Lyles CNM) Gestational diabetes mellitus (GDM) affecting History of anxiety state History of marijuana use History of prior cigarette smoking Left hamstring muscle strain Tear of PCL (posterior cruciate ligament) of knee (~03/11/21) UTI (urinary tract infection) Surgical History (Updated 01/09/22 @ 17:01 by Darling Dominguez MD) Hx of dilation and curettage Hx of wisdom tooth extraction Family History Maternal Grandfather Colon cancer Social History (Updated 09/10/20 @ 16:18 by Darling Dominguez MD) Smoking/Tobacco Use Status: Former Tobacco Use Quit Date: 08/02/20 Tobacco: How many years used: 3 Smoking risk assessment performed?: Yes Alcohol Intake: never Drug use: Occasionally Substance use type: marijuana Details: 09/11/20 pt reports none today Number of Children: 0 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 Do you feel safe at home: Yes Do you feel safe in your relationship?: Yes Female Reproductive History Menstrual Age of Menarche: 8 Duration of menses: 6-7 days control method: none History History 2 Para 1 Hx # Term Pregnancies 0 Multiple births 0 Hx # Pregnancies 1 Ectopic pregnancies 0 AB induced 0 Hx Number of Living Children 1 AB spontaneous 1 Past Pregnancies Del. Date GA/Weeks # Preg Succ Route Wgt Sex Labor Lgth Anesth esia Location [facility] 09/11/20 10 No AOC 01/08/22 40 No Yes 3997.283 g Female D simon Dominguez Course Vital Signs Vital signs: Vital Signs Temperature 36.7 C 11/18/22 08:12 Pulse 74 11/18/22 08:12 Respiratory Rate 16 11/18/22 08:12 Blood Pressure 111/70 11/18/22 08:12 Pulse Oximetry 98 11/18/22 08:12 Temperature 36.7 C 11/18/22 08:12 Temperature Source Skin 11/18/22 08:12 Pulse 74 11/18/22 08:12 Respiratory Rate 16 11/18/22 08:12 Respiratory Effort Normal, Non-Labored 11/18/22 08:31 Blood Pressure 111/70 11/18/22 08:12 Blood Pressure Position Sitting 11/18/22 08:12 Pulse Oximetry 98 11/18/22 08:12 Oxygen Delivery Method Room Air 11/18/22 08:12 Oxygen Flow Rate 0 11/18/22 08:12 Pain Level 6 11/18/22 08:12
== END 2022-11-18 09:35 | disposition left against medical advice (07) ==
PROVIDERS: Emergency Provider Registered Nurse Emergency; PCP Nurse Practitioner Family
DX: Z53.21 Procedure and treatment not carried out due to patient leaving prior to being seen by health care provider (principal)

== ENCOUNTER 2023-01-07 18:53 | Emergency (ER) | payer MEDICAID, SELFPAY ==
[2023-01-07 19:03] VITALS: BP 120/51; PULSE 107; RESP 18; TEMP 37.2; O2SAT 97
[2023-01-07 19:39] LABS: Bilirubin Negative (Negative); Blood Moderate (Negative); Clarity Clear (Clear); Glucose Negative (Negative); Ketones Negative (Negative); Leukocyte Esterase Small (Negative); Nitrite Negative (Negative); Specific Gravity >= 1.030 (1.005-1.025)
[2023-01-07 19:53] LABS: C & S Indicated? Yes; RBC >50 HPF (0-2); WBC >50 HPF (0-5)
--- NOTE | 2023-01-07 20:09 | ED.GENADUL_ITS ---
Discharge Plan Disposition Patient Disposition: Home Condition: Good Discharge Details Clinical Impression: Urinary tract infection Primary Care Provider: Meg Garcia ED Provider: Bud Jackson Home Meds and New Rx's Prescriptions: New cephalexin 500 mg capsule 500 mg PO QID 7 Days Qty: 28 0RF Discharge Instructions Instructions: Urinary Tract Infection in Women (ED) Additional Instructions: At this time you have evidence of urinary tract infection. Please take the antibiotic as directed. The rest of the prescription has been sent to your pharmacy on file. Please take this as directed. If you notice any worsening of your symptoms, or any new symptoms such as vomiting, diarrhea, fever, chills, shortness of breath, chest pain, numbness, weakness, or fainting , please return immediately to the emergency department for reevaluation. Please follow up with your primary care provider as soon as possible for reassessment and reevaluation. As always, it was a pleasure participating in your medical care today. Referrals: Meg Garcia [Primary Care Provider] - Discharge Data Discharge Date/Time-TO BE ENTERED AT DEPARTURE: 01/07/23 20:26 Medical Decision Making 22-year-old female with a past medical history of herpes, , chronic low back pain, presents today for evaluation of dysuria. Patient states that for the last 2 to 3 days she has had mild dysuria, frequency and has noticed small amount of blood tingeing. She does have some chronic bilateral lower back pain, but states that this is unchanged, and not new. She denies any fevers. She denies a headache or chest pain. She states that this feels identical to her's previous urinary tract infections that she has had. She denies any other complaints at this time. No other modifying factors. She is not currently . Exam demonstrates no abdominal tenderness, no flank or CVA tenderness. She is afebrile. She looks clinically well. Symptoms appear consistent with urinary tract infection. Symptoms appear clinically inconsistent with kidney stone. I did discuss options of CT imaging, and at this time through shared decision- making process patient has requested to hold off on any additional imaging. We will treat with Keflex for UTI. Discussed red flags for which to return. No clinical evidence of systemic pyelonephritis. I have extensively reviewed the treatment plan and discharge instructions with the patient. I have addressed all patient concerns at this time. The patient was made aware of what symptoms to monitor for that would warrant a return to the emergency department. Discussed the plan with the patient, they demonstrate verbal understanding and agreement with our assessment and plan at this time. The documentation in this chart was dictated using [employer] dictation software. Please excuse any dictation errors. HPI General Date/Time Provider Initiated Documentation: 01/07/23 19:59 . HPI Narrative: 22-year-old female with a past medical history of herpes, , chronic low back pain, presents today for evaluation of dysuria. Patient states that for the last 2 to 3 days she has had mild dysuria, frequency and has noticed small amount of blood tingeing. She does have some chronic bilateral lower back pain, but states that this is unchanged, and not new. She denies any fevers. She denies a headache or chest pain. She states that this feels identical to her's previous urinary tract infections that she has had. She denies any other complaints at this time. No other modifying factors. She is not currently . Related Data Home Medications Medication Instructions Recorded Confirmed cephalexin 500 mg capsule 500 mg PO QID 7 days #28 caps 01/07/23 Previous Rx's Medication Instructions Recorded cephalexin 500 mg capsule 500 mg PO QID 7 days #28 caps 01/07/23 Allergies Allergy/AdvReac Type Severity Reaction Status Date / Time hair dye Allergy Intermediate Swelling/Ed Uncoded 11/18/22 08:17 aniceto General Stated Complaint: Urinary CONRADO: 3 Review of Systems All systems reviewed & are unremarkable except as noted in HPI and below PFSH All Active Problems Urinary tract infection (Acute) Elevated hemoglobin A1c (Acute) Herpes labialis without complication (Acute) Vaginal discharge (Acute) History of delivery (Acute) 01/08/2022. Arrest of dilation and descent. Whit Daily. 4005 g Varicose vein of leg (Acute) Obesity, Class I, BMI 30-34.9 (Acute) Recurrent genital HSV (herpes simplex virus) infection (Acute) Medical History Gestational diabetes mellitus (GDM) affecting History of anxiety state History of marijuana use History of prior cigarette smoking Left hamstring muscle strain Tear of PCL (posterior cruciate ligament) of knee (~03/11/21) UTI (urinary tract infection) Surgical History Hx of dilation and curettage Hx of wisdom tooth extraction Family History Maternal Grandfather Colon cancer Social History Smoking/Tobacco Use Status: Former Tobacco Use Quit Date: 08/02/20 Tobacco: How many years used: 3 Smoking risk assessment performed?: Yes Alcohol Intake: never Drug use: Occasionally Substance use type: marijuana Housing: house Number of Children: 0 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 Do you feel safe at home: Yes Do you feel safe in your relationship?: Yes Female Reproductive History Menstrual Age of Menarche: 8 Duration of menses: 6-7 days control method: none History History 2 Para 1 Hx # Term Pregnancies 0 Multiple births 0 Hx # Pregnancies 1 Ectopic pregnancies 0 AB induced 0 Hx Number of Living Children 1 AB spontaneous 1 Past Pregnancies Del. Date GA/Weeks # Preg Succ Route Wgt Sex Labor Lgth Anesth esia Location Prov Complic 09/11/20 10 No AOC 01/08/22 40 No Yes 3997.283 g Female Dilma Santiago'rocael Exam Narrative Exam Narrative: 1.Const: Well-nourished, Well-developed, appearing stated age 2.Eyes: PERRL, no conjunctival injection, and symmetrical lids. 3.ENT: Atraumatic external nose and ears. Moist MM. Neck: Symmetric, trachea midline, No thyromegaly. 4.CVS: +S1/S2, No murmurs or gallops. Peripheral pulses 2+ and equal in all extremities. Brisk capillary refill in all extremities. 5.RESP: Unlabored respiratory effort. Clear to auscultation bilaterally. No wheezes rales or rhonchi 6.GI: Soft, Nontender/Nondistended, No hepatosplenomegaly. No guarding or rebound. No pain at McBurney's point, negative Sanchez sign. 7.MSK: Normocephalic/Atraumatic, Extremities w/o deformity or ttp No cyanosis or clubbing, Normal movement of all extremities. No flank or CVA tenderness 8.Skin: Warm, Dry. No rashes or lesions. 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 Sensation grossly intact, no focal neurologic deficits. 10.Psych: (AAO) x3. Appropriate mood and affect Course Vital Signs Vital signs: Vital Signs Temperature 37.2 C 01/07/23 19:03 Pulse 107 H 01/07/23 19:03 Respiratory Rate 18 01/07/23 19:03 Blood Pressure 120/51 L 01/07/23 19:03 Pulse Oximetry 97 01/07/23 19:03 Temperature 37.2 C 01/07/23 19:03 Temperature Source Temporal Artery Scan 01/07/23 19:03 Pulse 107 H 01/07/23 19:03 Respiratory Rate 18 01/07/23 19:03 Respiratory Effort Normal, Non-Labored 01/07/23 19:59 Blood Pressure 120/51 L 01/07/23 19:03 Blood Pressure Position Sitting 01/07/23 19:03 Pulse Oximetry 97 01/07/23 19:03 Oxygen Delivery Method Room Air 01/07/23 19:03 Oxygen Flow Rate 0 01/07/23 19:03 Pain Level 3 01/07/23 19:59 Lab/Test Results Lab/Test Results: 01/07/23 19:13 Urine - Reflex from Ua Urine Culture - Pending Laboratory Tests Range/Units 01/07/23 19:13 Urine Color (Yellow) Yellow Urine Clarity (Clear) Clear Urine pH (5-8) 7.0 Ur Specific Stanford (1.005-1.025) >= 1.030 H Urine Protein (Negative) mg/dL >=300 H Urine Ketones (Negative) mg/dL Negative Urine Blood (Negative) Moderate H Urine Nitrite (Negative) Negative Urine Bilirubin (Negative) Negative Urine Urobilinogen (Up to 0.2) mg/dL 1.0 H Ur Leukocyte Esterase (Negative) Small H Urine RBC (0-2) HPF >50 H Urine WBC (0-5) HPF >50 H Ur Epithelial Cells Not Applicable Urine Crystals Not Applicable Urine Bacteria Not Applicable Urine Mucus Not Applicable Ur Culture Indicated? Yes Urine Glucose (Negative) mg/dL Negative
== END 2023-01-07 20:26 | disposition home or self-care (01) ==
PROVIDERS: Student in an Organized Health Care Education/Training Program; Emergency Provider Student in an Organized Health Care Education/Training Program; PCP Nurse Practitioner Family
DX: N39.0 Urinary tract infection, site not specified; M54.50 Low back pain, unspecified; G89.29 Other chronic pain
CPT/HCPCS: 99283; 81003; 81015; 87086; 99284

== ENCOUNTER 2023-12-11 17:22 | Outpatient (REF) | payer MEDICAID, SELFPAY | END 2023-12-11 17:23 | disposition home or self-care (01) | LOC: LBN 17:22 | PROVIDERS: Visit Provider Nurse Practitioner Family | DX: L02.91 Cutaneous abscess, unspecified (principal) | CPT/HCPCS: 87070; 87205 ==

== ENCOUNTER 2024-09-23 08:55 | Emergency (ER) | payer MEDICAID, SELFPAY ==
[2024-09-23 08:58] VITALS: BP 133/89; PULSE 102; RESP 12; TEMP 37.2; O2SAT 100
--- NOTE | 2024-09-23 09:00 | DI.RAD_ITS ---
Exam(s) XR FOOT RT COMPLETE EXAM: XR FOOT RT COMPLETE CLINICAL HISTORY: Right foot pain. TECHNIQUE: 2D digital imaging was performed. COMPARISON: No exams were available for comparison FINDINGS: 3 views There is a small calcific density off the dorsal proximal aspect of the navicular bone which may be accessory ossicle or avulsion injury. There is no prominent overlying soft tissue swelling. No other potential fracture sites evident. There is no diastasis of the Lisfranc joint. Great toe metatarsophalangeal joint and other articulations of the forefoot appear unremarkable. Tarsometatarsal joints are unremarkable. No diastasis of the Lisfranc joint. IMPRESSION: Small calcific density off the proximal dorsal aspect of navicular bone, possibly representing avulsion injury. DATA REPOSITORY: RADIATION DOSE DELIVERED:
--- NOTE | 2024-09-23 09:00 | DI.RAD_ITS ---
Exam(s) XR ANKLE RT COMPLETE EXAM: XR ANKLE RT COMPLETE CLINICAL HISTORY: Right ankle pain. TECHNIQUE: 2D digital imaging was performed. COMPARISON: No exams were available for comparison FINDINGS: 3 views No evidence of acute fracture or widening the ankle mortise. Talar dome unremarkable. No degenerative changes in the hindfoot articulations. Bone density normal. No osseous lesions. IMPRESSION: No acute osseous findings in the right ankle. DATA REPOSITORY: RADIATION DOSE DELIVERED:
--- NOTE | 2024-09-23 09:08 | ED.GENADUL_ITS ---
Discharge Plan Disposition Patient Disposition: Home Discharge Details Clinical Impression: Closed navicular fracture of right foot, Closed right cuboid fracture Primary Care Provider: Aminah Harris ED Provider: Vineet Patten Home Meds and New Rx's Prescriptions: No Action No Known Home Meds Discharge Instructions Instructions: Foot Fracture ED Additional Instructions: Nursing in the emergency department for your foot pain. You are found to have fractures of both your navicular cuboid bones in your right foot you were placed in a splint. You are not to bear weight on your right lower extremity until you are seen podiatry team. Please call them in the morning on Wednesday for follow-up appointment. Please if you develop worsening pain or have any other concerns. For your pain please take medications as follows: 1. Take acetaminophen (Tylenol), 1,000 mg (two 500 mg tabs) every 6 hours [2. Take ibuprofen (Advil), 400 mg every 6 hours.] Stand Alone Forms: Work Release Referrals: [facility] [Provider Group] HPI General Date/Time Provider Initiated Documentation: 09/23/24 09:01 . HPI Narrative: MDM This is an overall very well-appearing normothermic but mildly tachycardic 23-year-old female with right foot pain for which she will undergo x-rays. No pain out of proportion to suggest necrotizing soft tissue infection. No erythema to suggest cellulitis. No fluctuance to suggest abscess. No midfoot instability to suggest Lisfranc injury. No right lateral foot tenderness to suggest Malik fracture. Right foot warm & well-perfused with intact PT and DP pulses so I am not concerned for critical limb ischemia so I do not feel that the patient requires a CT angiogram of her right lower extremity. No proximal tibial tenderness to suggest Maisonneuve injury. No ankle swelling to suggest septic joints and no indication for arthrocentesis. No history of axial loading to suggest increased risk for talar fracture. I suspect tachycardia may be secondary to pain for which patient will receive treatment with acetaminophen and ibuprofen. Will reassess following imaging. 12:25 PM Patient had an abnormal x-ray concerning for the possibility of a navicular fracture. I ordered a CT which revealed both a navicular and cuboid fracture on the right. I made patient nonweightbearing on her right lower extremity and gave her crutches after placing an Ortho-Glass splint.Patient's tachycardia resolved. Patient and I discussed whether or not to treat her with opiates. Patient has been able to manage her pain with oral nonnarcotic medications so I felt that the benefits of avoiding opiates outweigh the risks of constipation dizziness and falls.I discussed with patient my recommendation for rest and elevation. I also advised ice for 20 minutes on 20 minutes off. I have asked [facility] for Alisson to have the patient seen by podiatry within the next week. Patient I discussed that she should return to the ED for pain any discoloration of toes any increasing pain or any other concerns. She was given crutches. She was discharged with expectant outpatient management. HPI The patient presents for evaluation of foot pain. She reports experiencing pain across the dorsal aspect of her foot, which int ensifies upon weight-bearing. The onset of this discomfort was following a fall from a few stairs the previous night, during which she missed a step and her foot deviated laterally. She recalls hearing popping and crunching sounds at the time of the incident. She is not on any blood thinners and did not hit her head. She has no history of surgical interventions on the affected foot. The pain is localized to the top of her foot and radiates underneath. She suspects a sprain in her ankle due to the generalized pain in her foot. Additionally, she experiences shooting pain up her leg when attempting to squat. She has been managing the pain by shifting her weight to her heel while walking. She has not yet taken any analgesics such as Tylenol or ibuprofen for symptom relief. Exam General: Well-appearing in no acute distress speaking in complete sentences. Head: Normocephalic, atraumatic. Eye: Extraocular eye movements intact. No conjunctival injection. No scleral icterus. Ear, nose, mouth, throat: Grossly normal inspection. Normal voice, handling secretions normally. Neck: Trachea midline. Cardiovascular: Well-perfused distal extremities. Respiratory: Nonlabored respiration. Gastrointestinal: Nondistended abdomen. Musculoskeletal: Right lower extremity with mild lateral malleolar swelling. No ecchymosis. No lacerations. Right foot warm well-perfused cap refill less than 2 seconds. Intact PT and DP pulses. No proximal tibial tenderness. Mild right lateral malleoli tenderness. Right midfoot dorsal surface tenderness. No midfoot instability. No lateral foot tenderness.. Skin: Normal for age and race, grossly normal temperature and turgor. No acute rash. Neurologic: Alert and appropriate, no apparent acute deficits. Psychiatric: Mood and manner are appropriate. Grooming and personal hygiene are appropriate. Related Data Home Medications ?Medication ?Instructions ?Recorded ?Confirmed Unknown [No Known Home Meds] 09/23/24 0 09/23/24 Allergies Allergy/AdvReac Type Severity Reaction Status Date / Time hair dye Allergy Intermediate Swelling/Ed Uncoded 09/23/24 09:02 aniceto General Stated Complaint: Orthopedic CONRADO: 4 Course Vital Signs Vital signs: Vital Signs Temperature 37.2 C 09/23/24 08:58 Pulse 102 H 09/23/24 08:58 Respiratory Rate 12 09/23/24 08:58 Blood Pressure 133/89 09/23/24 08:58 Pulse Oximetry 100 09/23/24 08:58 Temperature 37.2 C 09/23/24 08:58 Temperature Source Oral 09/23/24 08:58 Pulse 102 H 09/23/24 08:58 Respiratory Rate 12 09/23/24 08:58 Blood Pressure 133/89 09/23/24 08:58 Blood Pressure Position Sitting 09/23/24 08:58 Pulse Oximetry 100 09/23/24 08:58 Oxygen Delivery Method Room Air 09/23/24 08:58 Oxygen Flow Rate 0 09/23/24 08:58 Pain Level 6 09/23/24 09:00 Procedure Orthopedic Splinting/Casting Date of Procedure: 09/23/24 Time of procedure: 12:29 Provider that performed the procedure: Vineet Patten Patient Consented: Verbally Side: right Lower Extremity Injury Location: foot Lower Extremity Immobilizer: posterior splint Weight bearing status: non-weight bearing as tolerated Other Orthopedic Equipment: crutches Procedure Description/Note: Splint completed with Ortho-Glass. [facility] All Active Problems (Updated 09/23/24 @ 12:12 by Vineet Patten MD) Closed right cuboid fracture (Acute) Closed navicular fracture of right foot (Acute) Immunization due (Acute) Elevated hemoglobin A1c (Acute) Herpes labialis without complication (Acute) Vaginal discharge (Acute) History of delivery (Acute) 01/08/2022. Arrest of dilation and descent. Whit Daily. 4005 g Varicose vein of leg (Acute) Obesity, Class I, BMI 30-34.9 (Acute) Recurrent genital HSV (herpes simplex virus) infection (Acute) Medical History Gestational diabetes mellitus (GDM) affecting History of anxiety state Tear of PCL (posterior cruciate ligament) of knee (~03/11/21) Left hamstring muscle strain History of prior cigarette smoking History of marijuana use UTI (urinary tract infection) Surgical History Hx of dilation and curettage Hx of wisdom tooth extraction Family History Maternal Grandfather Colon cancer Social History Smoking/Tobacco Use Status: Former Tobacco Use Quit Date: 08/02/20 Tobacco: How many years used: 3 Smoking risk assessment performed?: Yes Alcohol Intake: never Drug use: Occasionally Substance use type: marijuana Housing: house Number of Children: 0 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 Do you feel safe at home: Yes Do you feel safe in your relationship?: Yes Female Reproductive History Menstrual Age of Menarche: 8 Duration of menses: 6-7 days control method: none History History 2 Para 1 Hx # Term Pregnancies 0 Multiple births 0 Hx # Pregnancies 1 Ectopic pregnancies 0 AB induced 0 Hx Number of Living Children 1 AB spontaneous 1 Past Pregnancies Del. Date GA/Weeks # Preg Succ Route Wgt Sex Labor Lgth Anesth esia Location Prov Complic 09/11/20 10 No AOC 01/08/22 40 No Yes 3997.283 g Female Dilma Dominguez
[2024-09-23] MEDS: Acetaminophen 500 MG TAB 1000 MG PO (09:14)
[2024-09-23] MEDS: Ibuprofen 600 MG TAB PO (09:15)
--- NOTE | 2024-09-23 09:45 | DI.CT_ITS ---
Exam(s) CT LOWER EXTREMITY RT WO EXAM: CT LOWER EXTREMITY RT WO CLINICAL HISTORY: r foot pain. TECHNIQUE: Imaging Protocol: Axial computed tomography images with coronal and sagittal reformatted images were created and reviewed. CONTRAST MATERIAL: Intravenous: Omnipaque 350 Contrast volume:structured data in ml Contrast route:IV - Oral: yes / no COMPARISON: No exams were available for comparison FINDINGS: Osseous: . There is a linear lucency in the distal medial aspect of the cuboid bone at the level of the articular surface of the 4th tarsometatarsal joint. There is no fracture of the base of the 4th metatarsal. Other tarsometatarsal joints appear unremarkable. No metatarsal fractures nor phalangeal fractures. In the hindfoot there is either small avulsion or bony excrescence off the dorsal proximal aspect of the navicular which may be a capsular avulsion. There does appear to be small amount of surrounding edema. Talus unremarkable. Calcaneus unremarkable. IMPRESSION: There is nondisplaced subtle fracture on the plantar aspect of the distal cuboid at the 4th tarsometatarsal joint which violates the articular surface.. Small avulsion fracture at the dorsal proximal aspect of the navicular bone with some surrounding mild edema. Preliminary virtual Radiology report was reviewed. RADIATION DOSE DELIVERED: 78.87mGy.cm Total DLP DATA REPOSITORY: All CT scans at this facility are submitted to the National Radiology Data Registry (NRDR) Dose Index Registry (DIR) with the [employer] (ACR). RADIATION OPTIMIZATION: All CT scans at this facility use at least one of these dose optimization techniques: automated exposure control; mA and/or kV adjustment per patient size (includes targeted exams where dose is matched to clinical indication); or iterative reconstruction.
--- NOTE | 2024-09-23 09:47 | DI.VRAD_ITS ---
PROCEDURE INFORMATION: Exam: XR Right Ankle Exam date and time: 09/23/2024 9:34 AM Age: 23 years old Clinical indication: Other: Right ankle pain TECHNIQUE: Imaging protocol: Radiologic exam of the right ankle. Views: 3 or more views. COMPARISON: US LOWER EXTREMITY VENOUS RT 10/08/2021 2:36 PM FINDINGS: Bones/joints: Normal. Soft tissues: There is soft tissue swelling. IMPRESSION: No acute fracture or dislocation. Dictated and Authenticated by: Jed Winn MD. Orderin Earline Manley MD
--- NOTE | 2024-09-23 09:48 | DI.VRAD_ITS ---
PROCEDURE INFORMATION: Exam: XR Right Foot Exam date and time: 09/23/2024 9:35 AM Age: 23 years old Clinical indication: Other: Right foot pain TECHNIQUE: Imaging protocol: Radiologic exam of the right foot. Views: 3 or more views. COMPARISON: CR XR ANKLE RT COMPLETE 09/23/2024 9:34 AM FINDINGS: Bones/joints: Bone fragment at the proximal dorsal aspect of the navicular bone, suggestive of capsular avulsion. Soft tissues: There is soft tissue swelling. IMPRESSION: Bone fragment at the proximal dorsal aspect of the navicular bone, suggestive of capsular avulsion. Dictated and Authenticated by: Jed Winn MD. Orderin Earline Manley MD
--- NOTE | 2024-09-23 10:58 | DI.VRAD_ITS ---
PROCEDURE INFORMATION: Exam: CT Right Lower Extremity Without Contrast, Foot Exam date and time: 09/23/2024 10:15 AM Age: 23 years old Clinical indication: Pain; Foot; Right TECHNIQUE: Imaging protocol: CT of the right lower extremity without contrast was performed. Exam focused on the foot. COMPARISON: CR XR FOOT RT COMPLETE 09/23/2024 9:35 AM FINDINGS: Bones/joints: Nondisplaced fracture of the lateral aspect of the cuboid bone extending to the 4th tarsometatarsal joint. Capsular avulsion fracture at the dorsal proximal aspect of the navicular bone with surrounding soft tissue swelling. Soft tissues: There is soft tissue swelling. IMPRESSION: 1. Minimally displaced capsular avulsion fracture at the dorsal proximal aspect of the navicular bone with surrounding soft swelling. 2. Nondisplaced fracture of the plantar medial aspect of the cuboid involving the 4th tarsometatarsal joint. Dictated and Authenticated by: Jed Winn MD. Orderin Earline Manley MD
[2024-09-23 12:17] VITALS: BP 101/60; PULSE 72; RESP 16; O2SAT 99
== END 2024-09-23 12:33 | disposition home or self-care (01) ==
PROVIDERS: Emergency Provider Emergency Medicine; PCP Nurse Practitioner Family
DX: S92.251A Displaced fracture of navicular [scaphoid] of right foot, initial encounter for closed fracture (principal); S92.211A Displaced fracture of cuboid bone of right foot, initial encounter for closed fracture; W10.8XXA Fall (on) (from) other stairs and steps, initial encounter
CPT/HCPCS: 99283; 99285; 28450; 73610; 73630; 73700

== ENCOUNTER 2024-10-18 03:18 | Outpatient (CLI) | payer MEDICAID, SELFPAY ==
--- NOTE | 2024-10-18 07:30 | DI.RAD_ITS ---
Exam(s) XR FOOT RT COMPLETE EXAM: XR FOOT RT COMPLETE CLINICAL HISTORY: Recheck Fracture,CLOSED RT CUBOID FX,CLOSED NAVICULAR FX,S92.211A,S92.251. TECHNIQUE: 2D digital imaging was performed. Three views. COMPARISON: CR,XR XR ANKLE RT COMPLETE from 09/23/2024 CR,XR XR FOOT RT COMPLETE from 09/23/[address] LOWER EXTREMITY RT WO from 09/23/2024 FINDINGS: BONES: The cuboid fracture is not discretely visible on the current exam. No new abnormalities. No bony destructive lesion is seen. JOINTS: No dislocation present. SOFT TISSUE: Normal. IMPRESSION: Cuboid fracture is not visible. DATA REPOSITORY: RADIATION DOSE DELIVERED:
== END 2024-10-18 03:38 ==
LOC: DI 03:18
PROVIDERS: PCP Nurse Practitioner Family; Visit Provider Podiatrist
DX: X58.XXXD Exposure to other specified factors, subsequent encounter (principal); S92.251D Displaced fracture of navicular [scaphoid] of right foot, subsequent encounter for fracture with routine healing
CPT/HCPCS: 73630

== ENCOUNTER 2024-11-15 01:46 | Outpatient (CLI) | payer MEDICAID, SELFPAY ==
--- NOTE | 2024-11-15 12:35 | DI.RAD_ITS ---
Exam(s) XR FOOT RT COMPLETE EXAM: XR FOOT RT COMPLETE CLINICAL HISTORY: ? Healing,closed rt cuboid fx,closed navicular fx,rt foot pain,m79.671,. TECHNIQUE: 2D digital imaging was performed of the right foot. Three images were obtained. AP, oblique and lateral views were obtained. COMPARISON: CT CT LOWER EXTREMITY RT WO from 09/23/2024 CR,XR XR FOOT RT COMPLETE from 09/23/2024 CR XR FOOT RT COMPLETE from 10/18/2024 FINDINGS: BONES: The patient's known cuboid fracture cannot be visualized on the current examination. It was best appreciated on the CT scan of the foot. The tiny osseous density at the dorsal aspect of the navicular is unchanged. No bony destructive lesion is seen. JOINTS: No dislocation present. SOFT TISSUE: Normal. IMPRESSION: Stable appearance of the right foot. The patient's known cuboid fracture cannot be visualized on the current examination. DATA REPOSITORY: RADIATION DOSE DELIVERED:
== END 2024-11-15 02:06 ==
LOC: DI 01:46
PROVIDERS: PCP Nurse Practitioner Family; Visit Provider Podiatrist
DX: S92.211A Displaced fracture of cuboid bone of right foot, initial encounter for closed fracture (principal); S92.251A Displaced fracture of navicular [scaphoid] of right foot, initial encounter for closed fracture; M79.671 Pain in right foot; X58.XXXA Exposure to other specified factors, initial encounter
CPT/HCPCS: 73630